=== PATIENT | female | born 1955 | race Caucasian/White ===

== ENCOUNTER 2019-03-13 08:15 | Day surgery (SDC) | payer BC ==
[2019-03-13] MEDS ORDERED: Sodium Chloride 0.9% 40 ML ONE (08:23)
[2019-03-13] MEDS ORDERED: Acetaminophen 500 MG TAB PO SCH (09:00)
[2019-03-13] MEDS ORDERED: diphenhydrAMINE 25 MG CAP PO SCH (09:00)
[2019-03-13 13:32] VITALS: BP 111/53; TEMP 98.4
== END 2019-03-13 13:51 | disposition home or self-care (01) ==
LOC: ONC/OP 08:15
PROVIDERS: ATTEND Internal Medicine Hematology & Oncology
PROC: 30233N1 Transfusion of Nonautologous Red Blood Cells into Peripheral Vein, Percutaneous Approach (ICD-10-PCS; principal; 2019-03-13)
DX: D64.9 Anemia, unspecified (principal); D69.6 Thrombocytopenia, unspecified
CPT/HCPCS: 36430; 86850; 86900; 86901; J1642; P9016; Q0163

== ENCOUNTER 2019-04-03 09:04 | Inpatient (IN) | payer BC ==
--- NOTE | 2019-04-03 10:26 | RAD ---
EXAM: Single view of the chest HISTORY: Back and abdominal pain; tachycardia COMPARISON: None FINDINGS: Single view of the chest shows a normal sized cardiomediastinal silhouette. A Mediport is seen with its tip in the superior vena cava. There is no evidence of consolidation, mass, or pleural effusion. The bones are unremarkable. IMPRESSION: No evidence of acute cardiopulmonary disease
[2019-04-03 10:35] LABS: ALT (SGPT) 31 U/L (8-55); AST (SGOT) 21 U/L (5-34); Albumin 3.6 g/dL (3.4-4.8); Alkaline Phosphatase 174 U/L (40-110); Anion Gap 19 mmol/L (10-20); Anisocytosis SLIGHT = 6-15 cells (100X) (0-5/hpf); BUN (Urea Nitrogen) 16 mg/dL (9.8-20.1); Band 12 % (5-11); Bilirubin, Total 1.5 mg/dL (0.2-1.2); Calc. Creatinine Clearance 0 mL/min (70-130); Calcium 8.7 mg/dL (7.8-10.44); Carbon Dioxide 23 mmol/L (23-31); Chloride 92 mmol/L (98-107); Estimated GFR-MDRD 40; Globulin 2.9 g/dL (2.4-3.5); Glucose 478 mg/dL (80-115); Hemoglobin 10.7 g/dL (12.0-16.0); Lymphocytes 2 % (21-51); MDiff Complete? YES; Mean Corpuscular HGB CONC 33.7 g/dL (32.0-36.0); Mean Corpuscular Hemoglobin 31.8 pg (27.0-31.0); Mean Corpuscular Volume 94.5 fL (78.0-98.0); Mean Platelet Volume 7.9 fL (7.4-10.4); Metamyelocyte 1 % (0-0); Monocytes 13 % (0-10); Neutrophil 71 % (42-75); Platelet Count 280 thou/uL (130-400); Platelet Morphology Comment Appears Adequate; Polychromasia SLIGHT = 2-3 cells (100X) (0-2/hpf); Potassium 3.8 mmol/L (3.5-5.1); Protein, Total 6.5 g/dL (6.0-8.3); RBC Distribution Width 18.2 % (11.5-14.5); Reactive Lymphocytes 1 % (0-10); Red Blood Cell (RBC) Count 3.36 mill/uL (4.20-5.40); Sodium 130 mmol/L (136-145); Stomatocytes SLIGHT = 2-5 cells (100X) (0-1/hpf); Toxic Granulation SLIGHT; White Blood Cell (WBC) Count 25.8 thou/uL (4.8-10.8)
[2019-04-03] MEDS ORDERED: Piperacillin/Tazobactam 4.5 GM VIAL ONE (10:44)
[2019-04-03 10:48] LABS: Lipase 1483 U/L (8-78)
[2019-04-03] MEDS ORDERED: Sodium Chloride 0.9% 100 ML ONE (10:48)
[2019-04-03] MEDS ORDERED: Morphine 4 MG/ML VIAL ONE (11:36)
[2019-04-03 13:28] LABS: Lactic Acid 4.5 mmol/L (0.5-2.2)
--- NOTE | 2019-04-03 13:28 | CT ---
CT Abdomen Pelvis W Con: 04/03/2019 9:44 AM CLINICAL INFORMATION: Abdominal pain COMPARISON: PET/CT 10/09/2014 TECHNIQUE: Multiple contiguous axial images were obtained and a CT of the abdomen and pelvis with IV contrast. Oral contrast was administered. Coronal and sagittal reformats were performed. FINDINGS: Lower Chest: within normal limits. Abdomen: Liver: Diffuse fatty infiltration of the liver. Bile Ducts: Normal caliber. Gallbladder: No calcified gallstones. Normal caliber wall. Pancreas: Stranding changes are seen surrounding the pancreas consistent with acute pancreatitis. Spleen: within normal limits. Adrenals: Stable bilateral adrenal hyperplasia Kidneys: within normal limits. Pelvis: Reproductive Organs: Status post hysterectomy. Ureters: within normal limits. Bladder: within normal limits. Peritoneum: No ascites or free air, no fluid collection. Bowel: Normal caliber. Mesentery and Retroperitoneum: No enlarged mesenteric or retroperitoneal lymph nodes. Vessels: Atherosclerotic calcifications. Abdominal Wall: within normal limits. Bones: Degenerative changes in the spine. IMPRESSION: 1. Acute pancreatitis 2. Fatty liver 3. Stable bilateral adrenal hyperplasia
--- NOTE | 2019-04-03 14:29 | PDOC.FPRHP ---
- History of Present Illness Chief Complaint: ABD Pain History of Present Illness: Mrs. Michele is a 63 y/o female w/ a PMH significant for B Cell Lymphoma , which has subsequently progressed to T Cell Lymphoma, HTN, HLD and steroid- induced DM who presents to the ED with abdominal pain. Per the patient she has had fatigue, gas and ABD pain all week. She also has had decreased appetite all week due to this pain. The pain is mid-epigastric, without radiation, and is crampy in nature. She states that she has tried Gas-X, but that this did not help. She rates the pain currently as a 4/10 after receiving a dose of morphine in the ED. She has also had diarrhea throughout the week, as well as intermittent constipation. She states that she has also had subjective fever and chills. She denies vomiting, headaches, visual or auditory disturbances, chest pain, SOB, muscle aches/joint pain, and depression/anxiety. She states that [facility] [place] [place], but is followed locally by Dr. Lin's office for her lab draws. ED Course: The patient received a 1L bolus of NS, a 1L bolus of LR and subsequent fluid resuscitation with LR at 125 ml/hr. She also received Morphine 4 mg IVP as well as Vancomycin 1 g and Zosyn 4.5 Lactic Acid was elevated at 4.5 and Lipase was also elevated at 1483. CT ABD/Pelvis revealed fat stranding around the pancreas, consistent with Acute Pancreatitis. CXR was read to have NAF. - Allergies/Adverse Reactions Allergies Allergy/AdvReac Type Severity Reaction Status Date / Time buspirone [From BuSpar] Allergy Verified 04/03/19 16:23 lisinopril Allergy Verified 04/03/19 16:23 - Home Medications Medication Instructions Recorded Confirmed Type Estradiol 1 mg PO DAILY 04/03/19 04/03/19 History Furosemide [Lasix] 80 mg PO DAILY 04/03/19 04/03/19 History Losartan Potassium 100 mg PO DAILY 04/03/19 04/03/19 History Pantoprazole Sodium [Protonix] 20 mg PO DAILY 04/03/19 04/03/19 History Rosuvastatin Calcium 20 mg PO DAILY 04/03/19 04/03/19 History Venlafaxine HCl [Venlafaxine HCl 300 mg PO DAILY 04/03/19 04/03/19 History ER] metFORMIN HCl [Metformin HCl ER] 1,000 mg PO BID 04/03/19 04/03/19 History - History PMHx: Currently treated for T-cell lymphoma, Hx of B-Cell lymphoma, steroid- induced DM HTN, HLD, Depression PSHx: Foot Surgery to repair a Lisfranc Fracture FHx: Mother (Lung Cancer) Social: Remote Tobacco Abuse (05/30 PPD for +20 Years) Meds: 20mg rosuvastatin qhs, 150mg venlafaxine 24hr capsule (2 capsules PO QD), 1mg estradiol qd, 80mg furosemide qam, 500mg metformin (2 tab po qd), 100mg losartan po qam, 20mg pantoprazole po qd, 20mg famotidine po qd prn, glipizide Allergies: buspar, lisinorpil, augmentin - Review of Systems General: reports: fever/chills (chills, no fever) Eyes: reports: vision changes (slightly with diabetes). denies: eye pain ENT: denies: nasal congestion, rhinorrhea Respiratory: denies: cough, shortness of breath Cardiovascular: reports: edema. denies: chest pain Gastrointestinal: reports: diarrhea, constipation, abdominal pain. denies: vomiting Genitourinary: denies: incontinence, dysuria Skin: reports: rashes (apthous ulcers in mouth, esophagus) Musculoskeletal: denies: pain, tenderness Neurological: denies: syncope, seizure Psychological: reports: depression (chronic). denies: anxiety - Vital signs BP: [117/83] HR: [108] RR: [33] Tmax: [98.5] Pox: [99]% on [RA] Wt: [] - Physical Exam Constitutional: NAD, awake, alert and oriented, well developed HEENT: normocephalic and atraumatic, PERRLA, conjunctiva clear, no scleral icterus, grossly normal vision, grossly normal hearing, normal nasal mucosa, MMM , oropharynx clear, good dention Neck: supple, FROM, no LAD Chest: no-tender to palpation, no lesions Heart: normal S1/S2, no murmurs/rubs/gallops, pulses present, no edema, other ( Tachycardia) Lungs: CTAB, no respiratory distress, good air movement, no rales/rhonchi, no wheezing, no retractions Abdomen: soft (Protuberant with minimal TTP.) Musculoskeletal: normal structure, ROM grossly normal Neurological: no focal deficit, CN II-XII intact Skin: no jaundice Heme/Lymphatic: no unusual bruising or bleeding, no purpura, no petechia Psychiatric: normal mood and affect, good judgment and insight, intact recent and remote memory FMR H&P: Results - Labs Result Diagrams: 04/03/19 09:56 04/03/19 18:27 Lab results: WBC 25.8 thou/uL (4.8-10.8) H 04/03/19 09:56 Hgb 10.7 g/dL (12.0-16.0) L 04/03/19 09:56 Hct 31.7 % (36.0-47.0) L 04/03/19 09:56 MCV 94.5 fL (78.0-98.0) 04/03/19 09:56 Plt Count 280 thou/uL (130-400) 04/03/19 09:56 Band Neuts % (Manual) 12 % (5-11) H 04/03/19 09:56 Sodium 130 mmol/L (136-145) L 04/03/19 09:56 Potassium 3.8 mmol/L (3.5-5.1) 04/03/19 09:56 Chloride 92 mmol/L (98-107) L 04/03/19 09:56 Carbon Dioxide 23 mmol/L (23-31) 04/03/19 09:56 BUN 16 mg/dL (9.8-20.1) 04/03/19 09:56 Creatinine 1.34 mg/dL (0.6-1.1) H 04/03/19 09:56 Glucose 478 mg/dL (80-115) H 04/03/19 09:56 Lactic Acid 4.5 mmol/L (0.5-2.2) H* 04/03/19 12:52 Calcium 8.7 mg/dL (7.8-10.44) 04/03/19 09:56 Total Bilirubin 1.5 mg/dL (0.2-1.2) H 04/03/19 09:56 AST 21 U/L (5-34) 04/03/19 09:56 ALT 31 U/L (8-55) 04/03/19 09:56 Alkaline Phosphatase 174 U/L (40-110) H 04/03/19 09:56 Serum Total Protein 6.5 g/dL (6.0-8.3) 04/03/19 09:56 Albumin 3.6 g/dL (3.4-4.8) 04/03/19 09:56 Lipase 1483 U/L (8-78) H 04/03/19 09:56 FMR H&P: A/P - Problem List (1) HTN (hypertension) Current Visit: Yes Status: Acute Code(s): I10 - ESSENTIAL (PRIMARY) HYPERTENSION (2) HLD (hyperlipidemia) Current Visit: Yes Status: Acute Code(s): E78.5 - HYPERLIPIDEMIA, UNSPECIFIED (3) Pancreatitis Current Visit: Yes Status: Acute Code(s): K85.90 - ACUTE PANCREATITIS WITHOUT NECROSIS OR INFECTION, UNSP (4) T-cell lymphoma Current Visit: Yes Status: Acute Code(s): C85.90 - NON-HODGKIN LYMPHOMA, UNSPECIFIED, UNSPECIFIED SITE (5) History of B-cell lymphoma Current Visit: Yes Status: Acute Code(s): Z85.72 - PERSONAL HISTORY OF NON- HODGKIN LYMPHOMAS - Plan 1. Pancreatitis, Acute -Patient denies a history of Pancreatitis in the past, as well as a history of known gallstones or EtOH abuse -CT ABD/Pelvis: Fat-stranding around the Pancreas, consistent with Acute Pancreatitis -CXR: NAF -Lipase: 1483 -Lactic Acid: 4.5 -s/p 2L fluid (1 LR and 1 NS), with LR currently @ 140 ml/hr -s/p Vancomycin and Zosyn administration -Currently NPO 2. T-Cell Lymphoma -Confirm next scheduled chemotherapy treatment -Coordinate with Oncology as needed -Monitor vital signs closely for indications of hospital-acquired infection -Anticoagulate appropriately 3. Leukocytosis -WBCs: 25.8 on 04/03 -Etiology unclear - could be infectious or steroid-induced or a stress response to pancreatitis -Blood Cultures: Pending -Urine Cultures: Pending -s/p Vancomycin and Zosyn administration 4. DM, poorly controlled -Blood Glucose: 478 -Mild SSI -Adjust as needed 3. HTN -BP: 117/83 on 04/03 -Continue home medication regimen 4. HLD -Continue home medication regimen -Consider Fasting Lipid Panel for further risk stratification 5. Hyponatremia -Na: 130 on 04/03 -Continue aggressive fluid resuscitation -Continue to trend lab values Code: Full Diet: NPO Activity: Ad kristin DVT PPx: SCDs and Lovenox 40 mg SC Dispo: Admit patient to Medical Floor for aggressive fluid resuscitation. NPO. Consider GI consult if condition deteriorates. Expected LOS > 48H. FMR H&P: Upper Level - Pertinent history 63 yo F w/ PMH of lymphoma presents for 2-3 day history of abdominal bloating and epigastric pain. Pt reports she has steroid induced DMII and occasionally takes insulin. She also takes metformin. Pt evaluated in ED found to have extremely elevated lipase in addition to CT findings c/w pancreatitis and epigastric tenderness. Pt reports pain is currently well controlled. No NVDC. Phyllis Score 3. BISAP 1. Unknown chemotherapy regimen. [place] @ [facility] Oncologist - Pertinent findings ROS: As above PE: Gen: NAD resting comfortably in bed HEENT: NCAT, PERRLA, EOMI CV: RRR No MRG Resp: CTA bl no wrr Abd: Sluggish bowel sounds, epigastric tenderness to palpation, no rebound or guarding Extremities: Moving all, no clubbing cyanosis or edema. - Plan Date/Time: 04/03/19 1421 IOusmane DO, have evaluated this patient and agree with findings/ plan as outlined by business analyst intern resident. Pertinent changes/additions are listed here. 1) Acute pancreatitis - Aggressive IVF hydration and opioids prn for pain control - will titrate fluids to maintain UOP .5-1mL/hr, decrease as needed 2) UTI: - given vanc and zosyn in ED - elevated wbc and bandemia; likely related to drug regimen vs lymphoma - switch to rocephin and monitor Seee above documentation for chronic medical conditions. Hold medications and advance as tolerated. Dispo: Stable, will admit to medical for pain control and IVFs. Insulin for hyperglycemia. BISAP 1, [place] 3. Addendum - Attending - Attending Attestation Date/Time: 04/03/19 [id number] I personally evaluated the patient and discussed the management with Dr. Huerta and Dr. Oakley I agree with the History, Examination, Assessment and Plan documented above with any addition or exceptions noted below. Will call and update oncologist at [facility]. Treat pancreatitis. Etiology unknown. Will screen for common causes. Unsure chem drugs. Will follow up with onc. Treat UTI. Culture pending. Continue IVFs and antibx. NPO. Monitor closely. David
[2019-04-03 14:51] LABS: Bacteria/HPF 1+ HPF (None Seen); Bilirubin Negative (Negative); Blood, Urine 1+ (Negative); Clarity Turbid (Clear); Glucose, Urine (Dipstick) Greater than 1000 mg/dL (Negative); Leukocyte Negative Leu/uL (Negative); Nitrite Negative (Negative); Protein, Urine (Dipstick) 70 mg/dL (Neg-Trace); RBC/HPF 0-3 HPF (0-3); Squamous Epithelial 0-3 HPF (0-3); Urobilinogen Normal mg/dL (Less than 2)
[2019-04-03] MEDS ORDERED: Dextrose 5% in Water 1,000 ML IV PRN (14:54)
[2019-04-03] MEDS ORDERED: Ondansetron ODT 4 MG TAB PO PRN (14:54)
[2019-04-03] MEDS ORDERED: Dextrose 50% Abboject 50 ML SYRINGE SLOW IVP PRN (14:54)
[2019-04-03] MEDS ORDERED: Senokot S 8.6-50 MG TAB PO PRN (14:54)
[2019-04-03] MEDS ORDERED: Acetaminophen 325 MG TAB PO PRN (14:54)
[2019-04-03] MEDS ORDERED: Lactated Ringer's 1,000 ML IV SCH (15:00)
[2019-04-03 15:25] LABS: Actual Bicarbonate (HCO3a) 21.7 mEq/L (22-28); Analyzer IN Cardio ER; Base Excess (BEa) -1.7 mEq/L (-2.0 to +3.0); CO2 Tension 32.2 mmHg (35.0-45.0); Calcium, Ionized 0.99 mmol/L (1.12-1.30); Carboxyhemoglobin (COHb) 0.6 gm% (0.0-3.0); O2 Tension (PaO2) 69.3 mmHg (> 80.0); Puncture Site RRA; pH, Arterial 7.45 (7.35-7.45)
[2019-04-03] MEDS ORDERED: HumaLOG 300 UNITS/3 ML VIAL SC SCH (15:45)
[2019-04-03 16:08] VITALS: BMI 40.8
[2019-04-03] MEDS ORDERED: Iopamidol 370 76% 50 ML VIAL FS ONE (16:19)
[2019-04-03] MEDS ORDERED: Iopamidol-370 76% 500 ML 1 ML ONE (16:20)
[2019-04-03] MEDS: Lactated Ringer's 1,000 ML IV SCH ×3 (17:04→22:53)
[2019-04-03] MEDS: cefTRIAXone\\ROCEPHIN 1 GM in Sodium Chloride 0.9% 100 ML IVPB SCH (17:32)
[2019-04-03] MEDS ORDERED: Morphine 4 MG/ML VIAL SLOW IVP PRN (17:55)
[2019-04-03 18:01] LABS: Cardiac Risk 4.4 (Less than 4.5)
[2019-04-03 18:53] LABS: Anion Gap 19 mmol/L (10-20); BUN (Urea Nitrogen) 14 mg/dL (9.8-20.1); Calc. Creatinine Clearance 78 mL/min (70-130); Carbon Dioxide 21 mmol/L (23-31); Chloride 94 mmol/L (98-107); Estimated GFR-MDRD 45; Glucose 303 mg/dL (80-115); Potassium 3.3 mmol/L (3.5-5.1); Sodium 131 mmol/L (136-145)
[2019-04-03 18:57] LABS: Lactic Acid 4.8 mmol/L (0.5-2.2)
[2019-04-03] MEDS ORDERED: Potassium Chloride 20 MEQ TAB PO SCH (19:45)
[2019-04-03 19:57] LABS: Phosphorus 1.7 mg/dL (2.3-4.7)
[2019-04-03] MEDS ORDERED: Magnesium 2 GM/50 ML 2 GM in Premix Bag 1 BAG IVPB SCH (20:15)
[2019-04-03] MEDS ORDERED: Potassium Phosphate 12 MMOL in Sodium Chloride 0.9% 100 ML IVPB SCH (20:15)
[2019-04-03] MEDS ORDERED: Simethicone Chewable 80 MG TAB PO PRN (20:48)
[2019-04-03] MEDS: Famotidine/PF 20 mg/2ml Vial SLOW IVP SCH (20:54)
[2019-04-03] MEDS ORDERED: Polyethylene Glycol 3350 17 GM Packet PO SCH (21:00)
[2019-04-03] MEDS: HumaLOG 300 UNITS/3 ML VIAL SC PRN ×2 (21:15→22:49)
[2019-04-04 00:12] LABS: Lactic Acid 4.7 mmol/L (0.5-2.2)
[2019-04-04] MEDS: HumaLOG 300 UNITS/3 ML VIAL SC PRN ×7 (00:32→22:08)
[2019-04-04] MEDS: Lactated Ringer's 1,000 ML IV SCH ×7 (01:34→22:17)
[2019-04-04] MEDS: Morphine 2 MG/ML SYRINGE SLOW IVP PRN ×3 (04:39→22:03)
--- NOTE | 2019-04-04 05:15 | PDOC.FM ---
- Subjective Subjective: Patient has been doing well overnight, tolerating ice chips. Reports she is passing gas, has yet to have a bm. Continues to have some abdominal pain, though more concerned with her back pain at this time. Discussed that we may be able to transition to fluids this afternoon if she does well today. - Objective Vital Signs & Weight: Vital Signs (12 hours) Temp Pulse Resp BP Pulse Ox 04/04/19 04:07 98.3 F 115 H 20 132/70 94 L 04/04/19 00:20 99.2 F 115 H 20 130/80 98 04/03/19 20:00 97 04/03/19 19:03 98.8 F 107 H 18 144/74 H 97 04/03/19 17:49 96 Weight Weight 101.406 kg Result Diagrams: 04/04/19 04:47 04/04/19 04:47 Phys Exam - Physical Examination Constitutional: NAD HEENT: moist MMs, sclera anicteric Neck: supple, full ROM Respiratory: no wheezing, clear to auscultation bilateral Cardiovascular: RRR, no significant murmur Gastrointestinal: soft, non-tender Musculoskeletal: no edema, pulses present Neurological: normal sensation, moves all 4 limbs Psychiatric: normal affect, A&O x 3 Skin: no rash, normal turgor Dx/Plan (1) Depression Code(s): F32.9 - MAJOR DEPRESSIVE DISORDER, SINGLE EPISODE, UNSPECIFIED Status : Chronic (2) HLD (hyperlipidemia) Code(s): E78.5 - HYPERLIPIDEMIA, UNSPECIFIED Status: Chronic (3) HTN (hypertension) Code(s): I10 - ESSENTIAL (PRIMARY) HYPERTENSION Status: Chronic (4) History of B-cell lymphoma Code(s): Z85.72 - PERSONAL HISTORY OF NON-HODGKIN LYMPHOMAS Status: Acute (5) Pancreatitis Code(s): K85.90 - ACUTE PANCREATITIS WITHOUT NECROSIS OR INFECTION, UNSP Status: Acute (6) T-cell lymphoma Code(s): C85.90 - NON-HODGKIN LYMPHOMA, UNSPECIFIED, UNSPECIFIED SITE Status: Chronic (7) Leukocytosis Code(s): D72.829 - ELEVATED WHITE BLOOD CELL COUNT, UNSPECIFIED Status: Acute (8) Hyponatremia Code(s): E87.1 - HYPO-OSMOLALITY AND HYPONATREMIA Status: Acute (9) UTI (urinary tract infection) Status: Acute (10) Hypomagnesemia Code(s): E83.42 - HYPOMAGNESEMIA Status: Acute (11) Hypophosphatemia Code(s): E83.39 - OTHER DISORDERS OF PHOSPHORUS METABOLISM Status: Acute (12) Hypokalemia Code(s): E87.6 - HYPOKALEMIA Status: Acute - Plan Plan: #Pancreatitis, Acute -Patient denies a history of Pancreatitis in the past, as well as a history of known gallstones or EtOH abuse -CT ABD/Pelvis: Fat-stranding around the Pancreas, consistent with Acute Pancreatitis -CXR: neg -Lipase: 1483 -Lactic Acid: 4.5 in ED > 3.3 this am -s/p 2L fluid (1 LR and 1 NS) - LR currently @ 300 ml/hr -s/p Vancomycin and Zosyn administration in ED -Currently NPO with ice chips #T-Cell Lymphoma -onc consulted, appreciate recs -Monitor vital signs closely for indications of hospital-acquired infection -on lovenox for anticoagulation #Leukocytosis -WBCs: 25.8 on 04/03 -Etiology unclear - could be infectious or steroid-induced, likely a stress response to pancreatitis -Blood Cultures: Pending -Urine Cultures: Pending -s/p Vancomycin and Zosyn administration in ED -on rocephin for UTI #DM, poorly controlled; 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 -hold home metformin and glipizide, use insulin -Blood Glucose: 478 in ED, in 200s overnight -Mild SSI -Adjust as needed #HTN -BP: 130-140/70-80 overnight -Continue home medication regimen #HLD -hold statin for now until pacreatitis resolves #Hyponatremia -Na: 130>133 -Continue aggressive fluid resuscitation -will monitor #hypomagnesemia #hypophosphatemia #hypokalemia -on LR -repleted overnight and this am, will continue to monitor #UTI -UA positive for bacteria, LE -started on rocephin -urine culture pending Code: Full Diet: NPO with ice chips Activity: Ad kristin DVT PPx: Lovenox Dispo: Medical Floor for aggressive fluid resuscitation. NPO with ice chips, advance diet as tolerated. Onc consult in place, appreciate recs Addendum - Attending - Attending Attestation Date/Time: 11/02/12 1815 I personally evaluated the patient and discussed the management with Dr. Norwood. I agree with the History, Examination, Assessment and Plan documented above with any addition or exceptions noted below. Patient has mild tenderness but overall is much improved. If continues to do well, may advance diet this afternoon.
[2019-04-04 05:46] LABS: Phosphorus 2.1 mg/dL (2.3-4.7)
[2019-04-04 05:55] LABS: ALT (SGPT) 23 U/L (8-55); AST (SGOT) 16 U/L (5-34); Albumin 2.9 g/dL (3.4-4.8); Alkaline Phosphatase 135 U/L (40-110); Anion Gap 16 mmol/L (10-20); BUN (Urea Nitrogen) 11 mg/dL (9.8-20.1); Bilirubin, Total 0.8 mg/dL (0.2-1.2); Calc. Creatinine Clearance 104 mL/min (70-130); Calcium 7.6 mg/dL (7.8-10.44); Carbon Dioxide 21 mmol/L (23-31); Chloride 99 mmol/L (98-107); Estimated GFR-MDRD 63; Globulin 2.5 g/dL (2.4-3.5); Glucose 216 mg/dL (80-115); Magnesium 1.4 mg/dL (1.6-2.6); Protein, Total 5.4 g/dL (6.0-8.3); Sodium 133 mmol/L (136-145)
--- NOTE | 2019-04-04 05:58 | PDOC.FM ---
- Objective Vital Signs & Weight: Vital Signs (12 hours) Temp Pulse Resp BP Pulse Ox 04/04/19 04:07 98.3 F 115 H 20 132/70 94 L 04/04/19 00:20 99.2 F 115 H 20 130/80 98 04/03/19 20:00 97 04/03/19 19:03 98.8 F 107 H 18 144/74 H 97 Weight Weight 101.406 kg Result Diagrams: 04/03/19 09:56 04/03/19 18:27 Dx/Plan - Plan Plan: #Pancreatitis, Acute -Patient denies a history of Pancreatitis in the past, as well as a history of known gallstones or EtOH abuse -CT ABD/Pelvis: Fat-stranding around the Pancreas, consistent with Acute Pancreatitis -CXR: neg -Lipase: 1483 -Lactic Acid: 4.5 -s/p 2L fluid (1 LR and 1 NS) - LR currently @ 300 ml/hr -s/p Vancomycin and Zosyn administration in ED -Currently NPO with ice chips #T-Cell Lymphoma -onc consulted, appreciate recs -Monitor vital signs closely for indications of hospital-acquired infection -on lovenox for anticoagulation #Leukocytosis -WBCs: 25.8 on 04/03 -Etiology unclear - could be infectious or steroid-induced, likely a stress response to pancreatitis -Blood Cultures: Pending -Urine Cultures: Pending -s/p Vancomycin and Zosyn administration in ED -on rocephin for UTI #DM, poorly controlled; 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 -hold home metformin and glipizide, use insulin -Blood Glucose: 478 in ED, in 200s overnight -Mild SSI -Adjust as needed #HTN -BP: 130-140/70/80 overnight -Continue home medication regimen #HLD -hold statin for now until pacreatitis resolves #Hyponatremia -Na: 130 on 04/03 -Continue aggressive fluid resuscitation -will monitor #UTI -UA positive for bacteria, LE -started on rocephin -urine culture pending Code: Full Diet: NPO with ice chips Activity: Ad kristin DVT PPx: Lovenox Dispo: Medical Floor for aggressive fluid resuscitation. NPO with ice chips, advance diet as tolerated. Onc consult in place, appreciate recs
[2019-04-04 06:37] LABS: Band 17 % (5-11); Hemoglobin 8.6 g/dL (12.0-16.0); Lymphocytes 1 % (21-51); MDiff Complete? YES; Mean Corpuscular HGB CONC 33.9 g/dL (32.0-36.0); Mean Corpuscular Hemoglobin 31.9 pg (27.0-31.0); Mean Corpuscular Volume 94.1 fL (78.0-98.0); Mean Platelet Volume 7.7 fL (7.4-10.4); Monocytes 5 % (0-10); Neutrophil 77 % (42-75); Platelet Count 224 thou/uL (130-400); RBC Distribution Width 17.9 % (11.5-14.5); White Blood Cell (WBC) Count 22.8 thou/uL (4.8-10.8)
[2019-04-04] MEDS ORDERED: Potassium Phosphate 12 MMOL in Sodium Chloride 0.9% 250 ML 250 ML IVPB SCH (07:30)
[2019-04-04] MEDS ORDERED: Magnesium 2 GM/50 ML 2 GM in Premix Bag 1 BAG IVPB SCH (08:00)
[2019-04-04] MEDS: Venlafaxine HCl XR 150 MG CAP PO SCH (08:10)
[2019-04-04] MEDS: Famotidine/PF 20 mg/2ml Vial SLOW IVP SCH ×2 (08:10→19:58)
[2019-04-04] MEDS: Enoxaparin Sodium 40 MG/0.4 ML SYRINGE SC SCH (08:11)
[2019-04-04 08:13] LABS: Lactic Acid 3.3 mmol/L (0.5-2.2)
--- NOTE | 2019-04-04 11:14 | CON ---
DATE OF CONSULTATION: REASON FOR CONSULTATION: Lymphoma. HISTORY OF PRESENT ILLNESS: This is a 63-year-old female with T-cell lymphoma, on chemo, presenting to the hospital with abdominal pain, back pain, and severe constipation. The patient has a history of T-cell lymphoma and is currently on chemotherapy with rituximab, Cytoxan, prednisone, and Adriamycin at [facility]. The patient was evaluated by a nurse in the Cancer Clinic today with complaints of pain and constipation as well as lack of passing gas and was advised to go to the ER for evaluation. She denies any significant nausea, vomiting, or other complaints. She is due for next chemotherapy on April 10, 2019, at [facility]. In the clinic yesterday, her white blood cells are 26.4, hemoglobin 10.7, and platelets 313. The glucose of 439, a bilirubin of 1.4, and LDH 347. Uric acid 6.2. Upon evaluation in the ER, she received IV fluids, morphine, vancomycin, and Zosyn. A CAT scan of the abdomen and pelvis showed fat stranding around the pancreas consistent with acute pancreatitis. REVIEW OF SYSTEMS: Ten-point review of systems negative except as per HPI. PAST MEDICAL HISTORY: T-cell lymphoma, B-cell lymphoma, diabetes, hypertension, hyperlipidemia, depression, and family history of lung cancer in her mother. PAST SURGICAL HISTORY: Foot surgery, MediPort. SOCIAL HISTORY: One-fourth pack per day x20 plus years, not currently smoking. No current alcohol or illicit drugs. CURRENT MEDICATIONS: Reviewed. ALLERGIES: AUGMENTIN, LISINOPRIL, AND BUSPAR. PHYSICAL EXAMINATION: VITAL SIGNS: Temperature 98.5, pulse 99, respirations 20, saturating 97% on room air, and blood pressure 111/66. GENERAL APPEARANCE: The patient is lying in bed, in no acute distress and appears well. NECK: Supple. CARDIAC: S1 and S2. Regular rhythm and rate. RESPIRATIONS: Clear to auscultation. Good air movement bilaterally. ABDOMEN: Soft with mild tenderness to palpation in lower epigastric region. NEUROLOGIC: Cranial nerves II through XII are grossly intact. PSYCHIATRIC: Awake, alert, and oriented x3 with normal affect. LABORATORY DATA: White blood cells 22.8, hemoglobin 10.7 down to 8.6 after IV fluids, and platelets 224. Sodium 133, potassium 3.0, BUN 11, and creatinine 0.91. Lactic acid 6.2 on presentation, currently 3.3. Lipase 1483. Magnesium 1.4, phosphorus 2.1, and albumin 2.9. IMAGING DATA: CT abdomen and pelvis dated April 03, 2019, shows stranding changes surrounding the pancreas consistent with acute pancreatitis. ASSESSMENT AND PLAN: A 63-year-old female with T-cell lymphoma, currently on chemotherapy plus brentuximab, presenting to the hospital with acute pancreatitis and ileus. The patient is feeling much better after IV hydration and has begun passing gas. She does not drink alcohol and has no history of gallstones and none were seen on CT and her triglycerides were only mildly elevated. Presently, she does have history of scorpion bites, but none in a long time. There are rare case reports of brentuximab-induced pancreatitis and this may be the cause, however, this of course is a diagnosis of exclusion. Recommend continue IV hydration and pain control along with bowel rest and upon improvement, she can be discharged home with followup at [facility] for final cycle of chemotherapy and will need to discuss with [facility] doctors if they are comfortable continuing brentuximab in light of her pancreatitis episode. We will follow along peripherally with you. Please call with questions. Job ID: [id number] MTDD
--- NOTE | 2019-04-04 12:02 | ULT ---
Exam: Right upper quadrant ultrasound: HISTORY: Pancreatitis. COMPARISON: CT abdomen and pelvis on 04/03/2019. FINDINGS: Liver: Coarsened echotexture and increased echogenicity likely attributable to diffuse fatty infiltra tion which was noted on prior CT exam. This does limit evaluation of the hepatic parenchyma on sonographic evaluation. Gallbladder: No evidence of gallbladder calculi, gallbladder wall thickening, or pericholecystic flui d. Common bile duct: Common duct is dilated measuring 8 mm in diameter. No intrahepatic biliary duct dil atation is appreciated on this exam. Pancreas: Obscured due to bowel gas. Right kidney: Limited evaluation, but no gross abnormality is seen involving the right kidney. The ri ght kidney measures 12.9 cm in length. IVC: The visualized IVC demonstrates a normal sonographic appearance. IMPRESSION: 1. Diffuse fatty infiltration the liver limiting evaluation of the hepatic parenchyma. 2. Dilatation of the common duct which measures 8 mm. The exact etiology is uncertain. No intrahepati c biliary ductal dilatation is appreciated. 3. No gallbladder calculi are seen, and there is no gallbladder wall thickening or pericholecystic fl uid. 4. Nonvisualization of the pancreas.
[2019-04-04] MEDS ORDERED: Fleet Enema 133 ML BOT PR PRN (14:14)
[2019-04-04] MEDS: cefTRIAXone\\ROCEPHIN 1 GM in Sodium Chloride 0.9% 100 ML IVPB SCH (15:33)
[2019-04-04] MEDS ORDERED: Polyethylene Glycol 3350 17 GM Packet PO PRN (18:16)
[2019-04-05] MEDS: Morphine 2 MG/ML SYRINGE SLOW IVP PRN ×3 (03:39→22:31)
[2019-04-05] MEDS: Lactated Ringer's 1,000 ML IV SCH ×7 (03:41→21:27)
--- NOTE | 2019-04-05 05:28 | PDOC.FM ---
- Subjective Subjective: Patient doing well today, abdominal pain decreased. Passing flatus and belching. Eager to start on liquid diet today and advance as tolerated. - Objective Vital Signs & Weight: Vital Signs (12 hours) Temp Pulse Resp BP Pulse Ox 04/05/19 04:00 98.9 F 102 H 20 90/53 L 91 L 04/05/19 00:00 98.2 F 117 H 20 139/79 97 04/04/19 20:00 98.6 F 107 H 20 130/78 97 Weight Admit Weight 101.151 kg Weight 101.151 kg I&O: 04/03/19 04/04/19 04/05/19 06:59 06:59 06:59 Intake Total 3050 3240 Balance 3050 3240 Result Diagrams: 04/05/19 06:33 04/05/19 08:55 Phys Exam - Physical Examination Constitutional: NAD HEENT: moist MMs, sclera anicteric Neck: supple, full ROM Respiratory: no wheezing, clear to auscultation bilateral Cardiovascular: RRR, no significant murmur Gastrointestinal: soft, positive bowel sounds slightly ttp mid-epigastric area, improved Musculoskeletal: pulses present Neurological: normal sensation, moves all 4 limbs Psychiatric: normal affect, A&O x 3 Skin: no rash, normal turgor Dx/Plan (1) Depression Code(s): F32.9 - MAJOR DEPRESSIVE DISORDER, SINGLE EPISODE, UNSPECIFIED Status : Chronic (2) HLD (hyperlipidemia) Code(s): E78.5 - HYPERLIPIDEMIA, UNSPECIFIED Status: Chronic (3) HTN (hypertension) Code(s): I10 - ESSENTIAL (PRIMARY) HYPERTENSION Status: Chronic (4) History of B-cell lymphoma Code(s): Z85.72 - PERSONAL HISTORY OF NON-HODGKIN LYMPHOMAS Status: Acute (5) Pancreatitis Code(s): K85.90 - ACUTE PANCREATITIS WITHOUT NECROSIS OR INFECTION, UNSP Status: Acute (6) T-cell lymphoma Code(s): C85.90 - NON-HODGKIN LYMPHOMA, UNSPECIFIED, UNSPECIFIED SITE Status: Chronic (7) Leukocytosis Code(s): D72.829 - ELEVATED WHITE BLOOD CELL COUNT, UNSPECIFIED Status: Acute (8) Hyponatremia Code(s): E87.1 - HYPO-OSMOLALITY AND HYPONATREMIA Status: Acute (9) UTI (urinary tract infection) Status: Acute (10) Hypomagnesemia Code(s): E83.42 - HYPOMAGNESEMIA Status: Acute (11) Hypophosphatemia Code(s): E83.39 - OTHER DISORDERS OF PHOSPHORUS METABOLISM Status: Acute (12) Hypokalemia Code(s): E87.6 - HYPOKALEMIA Status: Acute - Plan Plan: #Pancreatitis, Acute -Patient denies a history of Pancreatitis in the past, as well as a history of known gallstones or EtOH abuse -CT ABD/Pelvis: Fat-stranding around the Pancreas, consistent with Acute Pancreatitis -Abdominal U/S: no gallbladder calculi, no gallbladder wall thickening, no pericholecystic fluid, diffuse fatty infiltration of the liver, dilation of the common bile duct at 8mm, no intrahepatic biliary duct dilitation -CXR: neg -Lipase: 1483 -Lactic Acid: 4.5 in ED > 3.3 > 2.5 -s/p 2L fluid (1 LR and 1 NS) in ED -LR currently @ 300 ml/hr -s/p Vancomycin and Zosyn administration in ED -Advance diet to clears today, with advancing as tolerated #T-Cell Lymphoma -onc consulted, appreciate recs -per note there is a rare association of pancreatitis with brentuximab; rec continued IV hydration and f/u with MD Higuera for final course of chemotherapy and to discuss tx options in light of recent pancreatitis -Monitor vital signs closely for indications of hospital-acquired infection -on lovenox for anticoagulation #Leukocytosis -WBCs: 25.8>22.8>20.3 -Etiology unclear - could be infectious or steroid-induced, likely a stress response to pancreatitis -Blood Cultures: Pending -Urine Cultures: Pending -s/p Vancomycin and Zosyn administration in ED -on rocephin for UTI #DM, poorly controlled; 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 -hold home metformin and glipizide, use insulin -Blood Glucose: 478 in ED -Mild SSI, in the 200s throughout the day yesterday, required 12u short-acting -start 6u long acting insulin today -Adjust as needed #HTN -BP: 90-139/53-79 overnight #HLD -hold statin for now until pancreatitis resolves #hypomagnesemia #hypophosphatemia #hypokalemia -on LR -will continue to monitor and replete as needed #UTI -UA positive for bacteria, LE -started on rocephin -urine culture pending #Hyponatremia, resolved -Na: 130>133>137 -Continue aggressive fluid resuscitation -will monitor Code: Full Diet: Clears Activity: Ad kristin DVT PPx: Lovenox, though patient is refusing; SCDs Dispo: Medical Floor for aggressive fluid resuscitation. Clears today, advance diet as tolerated. Addendum - Attending - Attending Attestation Date/Time: 04/05/19 6135 I personally evaluated the patient and discussed the management with Dr. Norwood. I agree with the History, Examination, Assessment and Plan documented above with any addition or exceptions noted below. The patient's abdominal pain is improved. Will advance diet. Miralax for constipation.
[2019-04-05] MEDS: HumaLOG 300 UNITS/3 ML VIAL SC PRN ×3 (05:49→17:46)
[2019-04-05 07:09] LABS: Lactic Acid 2.5 mmol/L (0.5-2.2)
[2019-04-05] MEDS: Enoxaparin Sodium 40 MG/0.4 ML SYRINGE SC SCH (08:03)
[2019-04-05] MEDS: Famotidine/PF 20 mg/2ml Vial SLOW IVP SCH ×2 (08:03→20:04)
[2019-04-05 08:05] LABS: Hemoglobin 8.3 g/dL (12.0-16.0); Mean Corpuscular HGB CONC 33.6 g/dL (32.0-36.0); Mean Corpuscular Hemoglobin 32.4 pg (27.0-31.0); Mean Corpuscular Volume 96.5 fL (78.0-98.0); Platelet Count 238 thou/uL (130-400); RBC Distribution Width 17.9 % (11.5-14.5); Red Blood Cell (RBC) Count 2.57 mill/uL (4.20-5.40); White Blood Cell (WBC) Count 20.3 thou/uL (4.8-10.8)
[2019-04-05 08:06] LABS: Band 8 % (5-11); Lymphocytes 2 % (21-51); MDiff Complete? YES; Monocytes 2 % (0-10); Neutrophil 88 % (42-75)
[2019-04-05] MEDS: Venlafaxine HCl XR 150 MG CAP PO SCH (08:06)
[2019-04-05] MEDS ORDERED: Insulin Glargine 6 UNITS in Pre-Filled Syringe 1 EACH SC SCH (09:00)
[2019-04-05 09:29] LABS: ALT (SGPT) 21 U/L (8-55); AST (SGOT) 20 U/L (5-34); Albumin 2.6 g/dL (3.4-4.8); Alkaline Phosphatase 126 U/L (40-110); Anion Gap 17 mmol/L (10-20); BUN (Urea Nitrogen) 7 mg/dL (9.8-20.1); Bilirubin, Total 0.7 mg/dL (0.2-1.2); Calc. Creatinine Clearance 127 mL/min (70-130); Calcium 7.4 mg/dL (7.8-10.44); Carbon Dioxide 17 mmol/L (23-31); Chloride 107 mmol/L (98-107); Estimated GFR-MDRD 80; Globulin 2.6 g/dL (2.4-3.5); Glucose 203 mg/dL (80-115); Potassium 3.6 mmol/L (3.5-5.1); Protein, Total 5.2 g/dL (6.0-8.3); Sodium 137 mmol/L (136-145)
[2019-04-05 13:11] LABS: Magnesium 1.2 mg/dL (1.6-2.6); Phosphorus 1.7 mg/dL (2.3-4.7)
[2019-04-05] MEDS ORDERED: PHOS-NAK 1 PKT PACK PO SCH (14:00)
[2019-04-05] MEDS: cefTRIAXone\\ROCEPHIN 1 GM in Sodium Chloride 0.9% 100 ML IVPB SCH (15:45)
[2019-04-05] MEDS: Magnesium Oxide 400 MG TAB PO SCH ×2 (20:04→22:29)
--- NOTE | 2019-04-05 21:10 | RAD ---
EXAM: CHEST ONE VIEW HISTORY: Shortness of breath. COMPARISON: 04/03/2019 FINDINGS: Right internal jugular vein Mediport catheter remains in place. The cardiac silhouette is mildly enla rged there are increased linear and slight patchy densities at each lung base. Findings are probably attributable to bibasilar atelectasis. However, developing pneumonitis at the right lung bas e cannot be entirely excluded. No other interval change. IMPRESSION: Bibasilar linear densities with slight patchy densities at the right lung base. Findings are most lik jessi attributable to bibasilar atelectasis, but developing pneumonitis at the right lung base cannot be entirely excluded. Follow-up PA and lateral chest x-ray is recommended.
--- NOTE | 2019-04-06 05:39 | PDOC.FM ---
- Subjective Subjective: Patient doing well this morning, reports she tolerated her liquid diet well yesterday, eager to transition to food today. Still having some abdominal pain but improved. Discussed importance of lovenox with patient today, patient agreeable to take it. - Objective Vital Signs & Weight: Vital Signs (12 hours) Temp Pulse Resp BP Pulse Ox 04/06/19 04:07 98.3 F 106 H 18 130/71 93 L 04/06/19 00:16 98.8 F 111 H 20 129/77 91 L 04/05/19 22:38 114 H 95 04/05/19 19:20 91 L 04/05/19 18:55 98.0 F 114 H 20 132/80 91 L Weight Admit Weight 101.151 kg Weight 101.151 kg I&O: 04/04/19 04/05/19 04/06/19 06:59 06:59 06:59 Intake Total 3050 3740 3179 Balance 3050 3740 3179 Result Diagrams: 04/06/19 05:06 04/06/19 05:06 Phys Exam - Physical Examination Constitutional: NAD HEENT: moist MMs, sclera anicteric Neck: supple, full ROM Respiratory: clear to auscultation bilateral Cardiovascular: RRR, no significant murmur Gastrointestinal: soft ttp mid-epigastric region Musculoskeletal: no edema, pulses present Neurological: normal sensation, moves all 4 limbs Psychiatric: normal affect, A&O x 3 Skin: no rash, normal turgor Dx/Plan (1) Depression Code(s): F32.9 - MAJOR DEPRESSIVE DISORDER, SINGLE EPISODE, UNSPECIFIED Status : Chronic (2) HLD (hyperlipidemia) Code(s): E78.5 - HYPERLIPIDEMIA, UNSPECIFIED Status: Chronic (3) HTN (hypertension) Code(s): I10 - ESSENTIAL (PRIMARY) HYPERTENSION Status: Chronic (4) History of B-cell lymphoma Code(s): Z85.72 - PERSONAL HISTORY OF NON-HODGKIN LYMPHOMAS Status: Acute (5) Pancreatitis Code(s): K85.90 - ACUTE PANCREATITIS WITHOUT NECROSIS OR INFECTION, UNSP Status: Acute (6) T-cell lymphoma Code(s): C85.90 - NON-HODGKIN LYMPHOMA, UNSPECIFIED, UNSPECIFIED SITE Status: Chronic (7) Leukocytosis Code(s): D72.829 - ELEVATED WHITE BLOOD CELL COUNT, UNSPECIFIED Status: Acute (8) Hyponatremia Code(s): E87.1 - HYPO-OSMOLALITY AND HYPONATREMIA Status: Acute (9) UTI (urinary tract infection) Status: Acute (10) Hypomagnesemia Code(s): E83.42 - HYPOMAGNESEMIA Status: Acute (11) Hypophosphatemia Code(s): E83.39 - OTHER DISORDERS OF PHOSPHORUS METABOLISM Status: Acute (12) Hypokalemia Code(s): E87.6 - HYPOKALEMIA Status: Acute - Plan Plan: #Pancreatitis, Acute -Patient denies a history of Pancreatitis in the past, as well as a history of known gallstones or EtOH abuse -CT ABD/Pelvis: Fat-stranding around the Pancreas, consistent with Acute Pancreatitis -Abdominal U/S: no gallbladder calculi, no gallbladder wall thickening, no pericholecystic fluid, diffuse fatty infiltration of the liver, dilation of the common bile duct at 8mm, no intrahepatic biliary duct dilitation -CXR: neg -Lipase: 1483>40 -Lactic Acid: 4.5 in ED > 3.3 > 2.5 -s/p 2L fluid (1 LR and 1 NS) in ED -LR currently @ 100 ml/hr -s/p Vancomycin and Zosyn administration in ED -Advance diet to CC, will see how patient tolerates diet throughout the day with possible d/c this afternoon #T-Cell Lymphoma -onc consulted, appreciate recs -per note there is a rare association of pancreatitis with brentuximab; rec continued IV hydration and f/u with MD Higuera for final course of chemotherapy and to discuss tx options in light of recent pancreatitis -Monitor vital signs closely for indications of hospital-acquired infection -on lovenox for anticoagulation, though patient continues to refuse this; discussed importance with patient this morning and patient agreeable #Leukocytosis -WBCs: 25.8>22.8>20.3 -Etiology unclear - could be infectious or steroid-induced, likely a stress response to pancreatitis -Blood Cultures: Pending -Urine Cultures: mixed skin ugo -s/p Vancomycin and Zosyn administration in ED -on rocephin for UTI #DM, poorly controlled; 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 -hold home metformin and glipizide, use insulin -Blood Glucose: 478 in ED -Mild SSI, in the 200s throughout the day yesterday, required 9u short-acting -change from 6u to 10u long acting insulin today based on short acting requirements yesterday -Adjust as needed #HTN -BP: 129-130/71-77 overnight #HLD -hold statin for now until pancreatitis resolves #hypomagnesemia #hypophosphatemia #hypokalemia -on LR -will continue to monitor and replete as needed #UTI, resolved -UA positive for bacteria, LE -s/p 3-day course rocephin -urine culture: mixed skin ugo #Hyponatremia, resolved -Na: 130>133>137>134 -Continue aggressive fluid resuscitation -will monitor Code: Full Diet: CC Activity: Ad kristin DVT PPx: Lovenox, though patient is refusing; SCDs though patient refused Dispo: Medical Floor. CC diet today, possible d/c later this afternoon if patient tolerates her diet well Addendum - Attending - Attending Attestation Date/Time: 04/06/19 5301 I personally evaluated the patient and discussed the management with Dr. Norwood. I agree with the History, Examination, Assessment and Plan documented above with any addition or exceptions noted below. The patient is feeling better. Advancing diet. She had toast this morning. If pt does well, may d/c this afternoon.
[2019-04-06] MEDS: Lactated Ringer's 1,000 ML IV SCH (05:48)
[2019-04-06] MEDS: HumaLOG 300 UNITS/3 ML VIAL SC PRN ×2 (05:48→13:26)
[2019-04-06 06:04] LABS: ALT (SGPT) 19 U/L (8-55); AST (SGOT) 17 U/L (5-34); Albumin 2.8 g/dL (3.4-4.8); Alkaline Phosphatase 137 U/L (40-110); Anion Gap 12 mmol/L (10-20); BUN (Urea Nitrogen) 5 mg/dL (9.8-20.1); Bilirubin, Total 0.8 mg/dL (0.2-1.2); Calc. Creatinine Clearance 127 mL/min (70-130); Calcium 7.5 mg/dL (7.8-10.44); Carbon Dioxide 23 mmol/L (23-31); Chloride 102 mmol/L (98-107); Estimated GFR-MDRD 80; Globulin 2.6 g/dL (2.4-3.5); Glucose 234 mg/dL (80-115); Protein, Total 5.4 g/dL (6.0-8.3); Sodium 134 mmol/L (136-145)
[2019-04-06 06:37] LABS: Lactic Acid 2.5 mmol/L (0.5-2.2)
[2019-04-06 06:42] LABS: Magnesium 1.1 mg/dL (1.6-2.6)
[2019-04-06 06:51] LABS: Phosphorus 1.7 mg/dL (2.3-4.7)
[2019-04-06 06:52] LABS: Band 15 % (5-11); Hemoglobin 8.5 g/dL (12.0-16.0); Lymphocytes 6 % (21-51); MDiff Complete? YES; Mean Corpuscular HGB CONC 34.1 g/dL (32.0-36.0); Mean Corpuscular Hemoglobin 32.2 pg (27.0-31.0); Mean Corpuscular Volume 94.5 fL (78.0-98.0); Mean Platelet Volume 7.9 fL (7.4-10.4); Monocytes 1 % (0-10); Neutrophil 78 % (42-75); Platelet Count 238 thou/uL (130-400); RBC Distribution Width 18.2 % (11.5-14.5); Red Blood Cell (RBC) Count 2.64 mill/uL (4.20-5.40); White Blood Cell (WBC) Count 14.8 thou/uL (4.8-10.8)
[2019-04-06] MEDS ORDERED: traMADol HCl 50 MG TAB PO PRN (07:07)
[2019-04-06] MEDS ORDERED: Potassium Phosphate 30 MMOL in Sodium Chloride 0.9% 500 ML IVPB SCH (07:15)
[2019-04-06] MEDS ORDERED: Magnesium 2 GM/50 ML 2 GM in Premix Bag 1 BAG IVPB SCH (07:15)
[2019-04-06] MEDS ORDERED: Polyethylene Glycol 3350 17 GM Packet PO PRN (08:09)
[2019-04-06] MEDS: Enoxaparin Sodium 40 MG/0.4 ML SYRINGE SC SCH (08:18)
[2019-04-06] MEDS: Magnesium Oxide 400 MG TAB PO SCH (08:19)
[2019-04-06] MEDS: Venlafaxine HCl XR 150 MG CAP PO SCH (08:19)
[2019-04-06] MEDS: Famotidine/PF 20 mg/2ml Vial SLOW IVP SCH (08:19)
[2019-04-06] MEDS: Ketorolac Tromethamine 10 MG TAB PO SCH ×2 (08:35→13:23)
[2019-04-06] MEDS ORDERED: Insulin Glargine 10 UNITS in Pre-Filled Syringe 1 EACH SC SCH (09:00)
[2019-04-06 15:24] VITALS: BP 144/73; TEMP 97.7
--- NOTE | 2019-04-06 16:50 | PQF ---
PAPO BARBOSA NIKKI, MD *r [id number]- [id number] CLINICAL DOCUMENTATION IMPROVEMENT CLARIFICATION FORM: ICD-10 Updated PLEASE DO AN ADDENDUM TO THE PROGRESS NOTE WITH ANY DOCUMENTATION UPDATES OR ADDITIONS AND CARRY THROUGH TO DC SUMMARY. THANK YOU. DATE: 04/06/19 ATTN: Dr. Norwood Please exercise your independent, professional judgment in responding to the clarification form. Clinical indicators are provided on the bottom of this form for your review Please check appropriate box(es): [ ] Sepsis due to: UTI [x] SIRS due to non-infectious process due to pancreatitis [x] with organ dysfunction(acute kidney injury) [ ] without organ dysfunction [ ] Localized infection without sepsis [ ] Other diagnosis [ ] Unable to determine In addition, please specify: Present on Admission (POA): [x] Yes [ ] No [ ] Unable to determine For continuity of documentation, please document condition throughout progress notes and discharge summary. Thank You. CLINICAL INDICATORS - SIGNS / SYMPTOMS / LABS / RESULTS AND LOCATION IN MR 04/03 VS: HR 108 WBC 25.8 04/03 labs 04/03 bun 16, creat 1.34, GFR 40--bun 14, creat 1.21, GFR 45--04/05 bun 7, creat 0.74, GFR 80 per lab UA wbc 11-20 04/03 lab 04/03 lactic acid 6.2 per lab H&P(Borroni): "leukocytosis could be infectious or steroid induced or a stress response to pancreatitis" RISK FACTORS / RESULTS AND LOCATION IN MR "UTI" H&P(Borroni) CT SCAN with acute pancreatitis Immunosuppressed--> T cell lymphoma per H&P(Borroni) TREATMENTS / RESULTS AND LOCATION IN MR Daily CBC 04/03 per orders Blood/urine cultures 04/03 per orders IV antibiotics - broad spectrum--> 04/03 VANC 1 gm IV x1, ZOSYN 4.5 gm IV x1 to Rocephin 1gm IV daily 04/03-04/05 per orders IV Fluids--> 04/03 1 L bolus NS, 1 L bolus LR THEN LR AT 100 04/03 to 04/06 per orders (This form is maintained as a part of the permanent medical record) 2014 [employer]. All Rights Reserved Leora Justice, RN, BSN, CCDS [email or web address] [facility]
--- NOTE | 2019-04-06 16:51 | PQF ---
PAPO BARBOSA NIKKI, MD *r [id number] [id number]- [id number] CLINICAL DOCUMENTATION IMPROVEMENT CLARIFICATION FORM: ICD-10 Updated PLEASE DO AN ADDENDUM TO THE PROGRESS NOTE WITH ANY DOCUMENTATION UPDATES OR ADDITIONS AND CARRY THROUGH TO DC SUMMARY. THANK YOU. DATE: 04/06/19 ATTN: Dr. Norwood Please exercise your independent, professional judgment in responding to the clarification form. Clinical indicators are provided on the bottom of this form for your review Please check appropriate box(s): [ x ] Acute Renal Failure (ARF) / Acute Kidney Injury (DUNCAN) [ ] Other Etiology or underlying conditions related to the diagnosis of ARF/ DUNCAN: [ ] Acute Interstitial Nephritis (AIN) [ ] Other: [ ] Other diagnosis [ ] Unable to determine In addition, please specify: Present on Admission (POA): [ x ] Yes [ ] No [ ] Unable to determine National Kidney Foundation Guidelines for CKD Staging Stage I Kidney damage with normal or increased GFRGFR > 90 Stage IIKidney damage with mildly decreased GFRGFR 60-89 Stage III Kidney damage with moderately decreased GFRGFR 30-59 Stage IVKidney damage with severely decreased GFRGFR 16-29 Stage VKidney failureGFR<15 ESRDEnd Stage Renal DiseaseOn dialysis Acute Renal Failure/Acute Kidney Failure defined as: Increases in SCr by (>) 0.3 mg/dl within 48 hours OR- Increases in SCr by (>) 1.5 times baseline, known or presumed to have occurred within the prior 7 days OR- Urine volume < 0.5 ml/kg/hour for 6 hours (KDIGO supplement 2012 for RIFLE/MARIA DOLORES criteria) For continuity of documentation, please document condition throughout progress notes and discharge summary. Thank You. CLINICAL INDICATORS - SIGNS / SYMPTOMS / LABS / RESULTS AND LOCATION IN MR 04/03 bun 16, creat 1.34, GFR 40--bun 14, creat 1.21, GFR 45--04/05 bun 7, creat 0.74, GFR 80 per lab RISK FACTORS / RESULTS AND LOCATION IN MR Dehydration--> NPO orders 04/03; H&P(Borroni): "acute pancreatitis, UTI" "History of T cell lymphoma on chemo" H&P(Borroni) TREATMENTS / RESULTS AND LOCATION IN MR IV fluid challenge result--> IV Fluids--> 04/03 1 L bolus NS, 1 L bolus LR THEN LR AT 100 04/03 to 04/06 per orders daily labs 04/03 per orders (This form is maintained as a part of the permanent medical record) 2014 [employer]. All Rights Reserved Leora Justice RN, BSN, CCDS [email or web address]
--- NOTE | 2019-04-07 08:50 | DIS ---
DATE OF ADMISSION: 04/03/2019 DATE OF DISCHARGE: 04/06/2019 ADMITTING RESIDENT: Ramses Huerta MD ADMITTING ATTENDING: Martha Hinson MD DISCHARGE ATTENDING: Tonya Neely MD DISCHARGE RESIDENT: Fabi Norwood MD CONSULTS: Oncology (Dr. Sin). PROCEDURES PERFORMED: None. IMAGING: CT abdomen/pelvis: Acute pancreatitis, fatty liver, stable bilateral adrenal hyperplasia. PRIMARY DIAGNOSES: Acute pancreatitis, leukocytosis, hypomagnesemia, hypophosphatemia, hypokalemia, hyponatremia, urinary tract infection, and acute kidney injury. SECONDARY DIAGNOSES: T-cell lymphoma, history of B-cell lymphoma, steroid induced diabetes mellitus, hypertension, and hyperlipidemia. DISCHARGE MEDICATIONS: 1. 1 mg estradiol p.o. daily. 2. 80 mg furosemide p.o. daily. 3. 100 mg losartan p.o. daily. 4. 20 mg Protonix p.o. daily. 5. 20 mg rosuvastatin p.o. daily. 6. 300 mg of venlafaxine p.o. daily. 7. 1000 mg metformin p.o. b.i.d. 8. patient's home glipizide medication. DISCONTINUED MEDICATIONS: 1. Magnesium sulfate. 2. Potassium phosphate. 3. docusate. 4. Morphine. 5. Toradol. 6. Senokot. 7. Humalog. 8. Lantus. 9. miralax. 10. Rocephin. 11. Tylenol. 12. Phos nak HISTORY OF PRESENT ILLNESS/HOSPITAL COURSE: The patient is a 63-year-old female with a past medical history significant for B-cell lymphoma, which subsequently progressed to T-cell lymphoma hypertension, hyperlipidemia, and steroid-induced diabetes mellitus who presented to the ED with abdominal pain, fatigue, flatulence, and decreased appetite. Her lipase was found to be 1483 and she was diagnosed with pancreatitis. On admission, she was also found to have leukocytosis with white blood cell count of 25.8 and throughout admission, her electrolytes were also monitored and replaced. On the day of discharge, potassium 3.0, phosphorus of 1.7, magnesium of 1.1, which were also replaced. All of the patient's home medications aside from her venlafaxine were held while she received IV fluids and morphine for pain relief. She was started on an NPO diet and provided with stool softeners and MiraLAX to help with her constipation. On the day of discharge, she had been transitioned to p.o. pain medications and had been able to tolerate solid foods with little abdominal discomfort. Lipase on discharge was 40. The patient was also found to have UTI upon admission and was treated with Rocephin x3 days. Urine culture was negative, just had some skin ugo. She was also treated for DUNCAN while she was hospitalized with IVF hydration. Her creatinine on admission was 1.34 and had been reduced to baseline at 0.[address] Dias, her oncologist, was called and recommended that she be restarted on her home medications and to follow up at [facility] at her scheduled appointment upon discharge. The patient was evaluated on the day of discharge and agreeable to the plan of care of going home on her home medications and following up with Dr. Dias at [facility] later this week for scheduled chemotherapy appointment. DISPOSITION: Stable. DISCHARGE INSTRUCTIONS: 1. Location: Home. 2. Diet: Heart healthy, carb conscious. 3. Activity: As tolerated. 4. Followup: Follow up with Dr. Dias at [facility] at scheduled appointment later this week and PCP within 1 to 2 weeks. Job ID: [id number] [facility]
--- NOTE | 2019-04-08 18:43 | EKG ---
Test Reason : Blood Pressure : / mmHG Vent. Rate : 114 BPM Atrial Rate : 114 BPM P-R Int : 152 ms QRS Dur : 102 ms QT Int : 352 ms P-R-T Axes : 059 034 031 degrees QTc Int : 485 ms Sinus tachycardia Anterior infarct (cited on or before 23-JAN-2007) Abnormal ECG When compared with ECG of 23-JAN-2007 12:55, Vent. rate has increased BY [address] Marco WILKERSON ([id number]) on 04/08/2019 6:43:20 PM Referred By: CLIFFORD Confirmed By:DR. Marco WILKERSON
== END 2019-04-06 15:26 | disposition home or self-care (01) | DRG 438 ==
LOC: ERS 09:04 → T4-B 14:37
PROVIDERS: ADMIT Student in an Organized Health Care Education/Training Program; ATTEND Student in an Organized Health Care Education/Training Program
DX: K85.90 Acute pancreatitis without necrosis or infection, unspecified (principal); R65.11 Systemic inflammatory response syndrome (SIRS) of non-infectious origin with acute organ dysfunction; N17.9 Acute kidney failure, unspecified; E87.1 Hypo-osmolality and hyponatremia; N39.0 Urinary tract infection, site not specified; C91.50 Adult T-cell lymphoma/leukemia (HTLV-1-associated) not having achieved remission; K56.7 Ileus, unspecified; E83.42 Hypomagnesemia; E83.39 Other disorders of phosphorus metabolism; E87.6 Hypokalemia; T38.0X5A Adverse effect of glucocorticoids and synthetic analogues, initial encounter; I10 Essential (primary) hypertension; E78.5 Hyperlipidemia, unspecified; E09.65 Drug or chemical induced diabetes mellitus with hyperglycemia; F32.9 Major depressive disorder, single episode, unspecified; Z87.891 Personal history of nicotine dependence; Z88.1 Allergy status to other antibiotic agents; Z88.8 Allergy status to other drugs, medicaments and biological substances; Z79.899 Other long term (current) drug therapy
CPT/HCPCS: 36415; 36416; 71045; 74177; 76705; 80053; 80061; 81003; 81015; 82010; 82248; 82805; 83605; 83615; 83690; 83735; 84100; 84550; 85025; 87040; 87086; 93005; 93010; J0696; J1642; J1650; J1815; J2270; J2543; J3370; J3475; J3490; J7050; Q9967; S0028

== ENCOUNTER 2019-04-07 11:35 | Inpatient (IN) | payer BC ==
--- NOTE | 2019-04-07 12:09 | RAD ---
EXAM: Single view of the chest HISTORY: Pancreatitis COMPARISON: 04/05/2019 FINDINGS: Single view of the chest shows a normal sized cardiomediastinal silhouette. The Mediport i s unchanged in position. There is no evidence of consolidation, mass, or pleural effusion. The bones are unremarkable. IMPRESSION: No evidence of acute cardiopulmonary disease
[2019-04-07] MEDS ORDERED: Iopamidol-370 76% 500 ML 1 ML ONE (13:24)
[2019-04-07 13:30] LABS: #Lymphocytes 0.4 thou/uL (1.20-3.40); #Monocytes 0.8 thou/uL (0.11-0.59); #Neutrophils 10.8 thou/uL (1.40-6.50); %Basophils 0.2 % (0.0-1.0); %Eosinophils 0.2 % (0.0-10.0); %Lymphocytes 3.4 % (21.0-51.0); %Monocytes 6.6 % (0.0-10.0); %Neutrophils 89.5 % (42.0-75.0); Hemoglobin 8.9 g/dL (12.0-16.0); Mean Corpuscular HGB CONC 32.6 g/dL (32.0-36.0); Mean Corpuscular Hemoglobin 31.2 pg (27.0-31.0); Mean Corpuscular Volume 95.8 fL (78.0-98.0); Mean Platelet Volume 7.9 fL (7.4-10.4); Platelet Count 275 thou/uL (130-400); RBC Distribution Width 17.7 % (11.5-14.5); Red Blood Cell (RBC) Count 2.86 mill/uL (4.20-5.40); White Blood Cell (WBC) Count 12.1 thou/uL (4.8-10.8)
[2019-04-07 13:55] LABS: ALT (SGPT) 25 U/L (8-55); AST (SGOT) 26 U/L (5-34); Alkaline Phosphatase 155 U/L (40-110); Anion Gap 19 mmol/L (10-20); BUN (Urea Nitrogen) 9 mg/dL (9.8-20.1); Calc. Creatinine Clearance 0 mL/min (70-130); Carbon Dioxide 17 mmol/L (23-31); Chloride 104 mmol/L (98-107); Estimated GFR-MDRD 74; Globulin 2.3 g/dL (2.4-3.5); Glucose 319 mg/dL (80-115); Lipase 19 U/L (8-78); Potassium 3.5 mmol/L (3.5-5.1); Protein, Total 5.3 g/dL (6.0-8.3); Sodium 136 mmol/L (136-145)
[2019-04-07 14:18] LABS: CKMB 1.4 ng/mL (0-6.6)
--- NOTE | 2019-04-07 14:48 | PDOC.FPRHP ---
- History of Present Illness Chief Complaint: SOB History of Present Illness: Patient is a 63F with PMHx of T-cell lymphoma currently being treated, B-cell lymphoma, steroid-induced DM, HTN, HLD, depression, and recent admission for pancreatitis that presented with SOB. Patient reports that the SOB began yesterday evening after she got home. Recently discharged 04/07 after being in the hospital for pancreatitis. Had reported of brief SOB yesterday while rolling over in bed before discharge, but was satting well on room air and SOB was temporary, patient was agreeable with discharge at that time; CXR night of 03/05 demonstrated possible atelectasis without pleural effusions. Patient reports that her SOB is exertional, she is not SOB while sitting in bed. Denies chest pain, cough, headache, dysuria, diarrhea, constipation. Endorses chronic rhinorrhea. ED Course: 1L NS, 324mg asa - Allergies/Adverse Reactions Allergies Allergy/AdvReac Type Severity Reaction Status Date / Time buspirone [From BuSpar] Allergy Verified 04/03/19 16:23 lisinopril Allergy Verified 04/03/19 16:23 - Home Medications Medication Instructions Recorded Confirmed Type RX: Estradiol 1 mg PO DAILY 04/03/19 04/07/19 History RX: Furosemide [Lasix] 80 mg PO DAILY 04/03/19 04/07/19 History RX: Losartan Potassium 100 mg PO DAILY 04/03/19 04/07/19 History RX: Pantoprazole Sodium [Protonix] 20 mg PO DAILY 04/03/19 04/07/19 History RX: Rosuvastatin Calcium 20 mg PO DAILY 04/03/19 04/07/19 History RX: Venlafaxine HCl [Venlafaxine 300 mg PO DAILY 04/03/19 04/07/19 History HCl ER] RX: metFORMIN HCl [Metformin HCl 1,000 mg PO BID 04/03/19 04/07/19 History ER] - History PMHx: Currently treated for T-cell lymphoma, Hx of B-Cell lymphoma, steroid- induced DM HTN, HLD, Depression, recent admission for pancreatitis PSHx: Foot Surgery to repair a Lisfranc Fracture FHx: Mother (Lung Cancer) Social: Remote Tobacco Abuse (05/30 PPD for +20 Years) Meds: 20mg rosuvastatin qhs, 150mg venlafaxine 24hr capsule (2 capsules PO QD), 1mg estradiol qd, 80mg furosemide qam, 500mg metformin (2 tab po qd), 100mg losartan po qam, 20mg pantoprazole po qd, 20mg famotidine po qd prn, glipizide Allergies: buspar, lisinorpil, augmentin - Review of Systems General: denies: fever/chills, weight/appetite/sleep changes Eyes: denies: eye pain, vision changes ENT: reports: rhinorrhea. denies: nasal congestion Respiratory: reports: shortness of breath. denies: cough Cardiovascular: reports: edema. denies: chest pain, palpitation Gastrointestinal: denies: nausea, vomiting, diarrhea Genitourinary: denies: incontinence, dysuria Skin: denies: rashes, lesions Musculoskeletal: denies: pain, tenderness Neurological: denies: syncope, seizure Psychological: denies: anxiety, depression - Vital signs BP: [140/76] HR: [113] RR: [23] Tmax: [98.1] Pox: [100]% on [RA] Wt: [106.5kg ] - Physical Exam Constitutional: NAD, awake, alert and oriented HEENT: EOMI, grossly normal vision, grossly normal hearing, MMM Neck: supple, FROM, trachea midline Heart: RRR, normal S1/S2 -Heart: 1+ edema Lungs: no respiratory distress -Lungs: scant crackles throughout Abdomen: soft -Abdomen: slightly ttp mid-epigastric region Musculoskeletal: normal tone, ROM grossly normal Neurological: CN II-XII intact, normal sensation Skin: no rash/lesions, good turgor Heme/Lymphatic: no unusual bruising or bleeding, no purpura Psychiatric: normal mood and affect, good judgment and insight FMR H&P: Results - Labs Result Diagrams: 04/07/19 13:22 04/07/19 13:22 Lab results: WBC 12.1 thou/uL (4.8-10.8) H 04/07/19 13:22 Hgb 8.9 g/dL (12.0-16.0) L 04/07/19 13:22 Hct 27.4 % (36.0-47.0) L 04/07/19 13:22 MCV 95.8 fL (78.0-98.0) 04/07/19 13:22 Plt Count 275 thou/uL (130-400) 04/07/19 13:22 Neutrophils % 89.5 % (42.0-75.0) H 04/07/19 13:22 Sodium 136 mmol/L (136-145) 04/07/19 13:22 Potassium 3.5 mmol/L (3.5-5.1) 04/07/19 13:22 Chloride 104 mmol/L (98-107) 04/07/19 13:22 Carbon Dioxide 17 mmol/L (23-31) L 04/07/19 13:22 BUN 9 mg/dL (9.8-20.1) L 04/07/19 13:22 Creatinine 0.79 mg/dL (0.6-1.1) 04/07/19 13:22 Glucose 319 mg/dL (80-115) H 04/07/19 13:22 Calcium 7.0 mg/dL (7.8-10.44) L 04/07/19 13:22 Total Bilirubin 1.0 mg/dL (0.2-1.2) 04/07/19 13:22 AST 26 U/L (5-34) 04/07/19 13:22 ALT 25 U/L (8-55) 04/07/19 13:22 Alkaline Phosphatase 155 U/L (40-110) H 04/07/19 13:22 CK-MB (CK-2) 1.4 ng/mL (0-6.6) 04/07/19 13:22 B-Natriuretic Peptide 2748.1 pg/mL (0-100) H 04/07/19 13:22 Serum Total Protein 5.3 g/dL (6.0-8.3) L 04/07/19 13:22 Albumin 3.0 g/dL (3.4-4.8) L 04/07/19 13:22 Lipase 19 U/L (8-78) 04/07/19 13:22 - Radiology Interpretation Chest x-ray Status: report reviewed by me (Negative for acute intrathoracic process) Other Status: report reviewed by me (CTA: no evidence of pulmonary thrombolism, small bilateral pleural effusions with adjacent atelectasis, possible enlarged right axillary lymph node) FMR H&P: A/P - Problem List (1) Pulmonary edema Current Visit: Yes Status: Acute Code(s): J81.1 - CHRONIC PULMONARY EDEMA (2) Elevated d-dimer Current Visit: Yes Status: Acute Code(s): R79.89 - OTHER SPECIFIED ABNORMAL FINDINGS OF BLOOD CHEMISTRY (3) Elevated troponin Current Visit: Yes Status: Acute Code(s): R79.89 - OTHER SPECIFIED ABNORMAL FINDINGS OF BLOOD CHEMISTRY (4) History of B-cell lymphoma Current Visit: No Status: Acute Code(s): Z85.72 - PERSONAL HISTORY OF NON- HODGKIN LYMPHOMAS (5) Depression Current Visit: No Status: Chronic Code(s): F32.9 - MAJOR DEPRESSIVE DISORDER , SINGLE EPISODE, UNSPECIFIED (6) HLD (hyperlipidemia) Current Visit: No Status: Chronic Code(s): E78.5 - HYPERLIPIDEMIA, UNSPECIFIED (7) HTN (hypertension) Current Visit: No Status: Chronic Code(s): I10 - ESSENTIAL (PRIMARY) HYPERTENSION (8) T-cell lymphoma Current Visit: No Status: Chronic Code(s): C85.90 - NON-HODGKIN LYMPHOMA, UNSPECIFIED, UNSPECIFIED SITE - Plan Patient is a 63F with PMHx of T-cell lymphoma currently being treated, B-cell lymphoma, steroid-induced DM, HTN, HLD, depression, and recent admission for pancreatitis that presented with SOB. #Pulmonary Edema, likely 2/2 fluid overload #Elevated trop -recent admission for pancreatitis, possible 3rd spacing of fluid -scant crackles throughout on respiratory exam -BNP: 2748 -Trop 0.074>0.071, likely 2/2 fluid overload; patient denies cp at this time, continue to trend -EKG: sinus tach -strict I&O -IV lasix -echo ordered, will follow #Elevated D-dimer -d-dimer 3.11, likely elevated due to cancer -patient actively refused lovenox and SCDs during last admission except for last day, despite counseling about her higher risk for blood clots -CTA chest negative for pulmonary embolism #Steroid-induced DM -continue home meds -hyperglycemia protocol -ISS #HTN -continue home meds -hydralazine prn #HLD -continue home meds #Depression -continue home meds #Recent pancreatitis -patient reports she is tolerating a normal diet well, having normal BM Diet: CC DVT ppx: lovenox Code: Full Dispo: admitted for fluid diuresis, strict I&O, echo pending, trending trops PCP: Dr. Babin, Oncology: Dr. Dias FMR H&P: Upper Level - Plan Date/Time: 04/07/19 1446 I, Brian Schuler, , have evaluated this patient and agree with findings/plan as outlined by spring intern resident. Pertinent changes/additions are listed here. This is a 63 yo female with a pmh T-cell lymphoma, hx of B-cell lymphoma, steroid induced diabetes mellitus, and HLD who was recently discharged from our service following the treatment of presumptive chemotherapy induced pancreatitis. She was also treated for UTI, DUNCAN, hypokalemia, and hyponatremia. Pt received had received approximately 10 L during that hospitalization and is the likely culprit. Pt has no pmh of CHF. Now, pt is presenting to the ER with a cc of SOB. She states she got home and was feeling worsening JACOBSON that led her to return. She denies cough, chest pain, dizziness, numbness, or weakness. She does report overall deconditioning. She does not require home O2 on a regular basis. She does report low back pain, musculoskeletal in nature, chronic. Objective: Vital signs as above General: NAD Cardio: RRR, no murmur Lungs: basilar crackles, difficult exam due to body habitus, speaking in complete sentences Extremities: 2+ pitting edema to mid thigh Please see spring intern note for further information. A/P: Pulmonary edema 2/2 iatrogenic fluid resuscitation from pancreatitis -Admit to tele obs -Concern for CHF, pending AM echo -IV lasix -Monitor renal status with AM BMP -Strict I&Os -BNP 2748 -CXR no acute cardiopulmonary disease Elevated troponin -Trending down, trend x3 total -Likely from fluid overload Elevated D-dimer -Negative CTA -prophylactic lovenox Chronic conditions as managed by spring intern note above Code: Full Prophylaxis: lovenox Family: Friend at bedside Fluids: SL Diet: CC Disposition: DC in 1-2 days PCP: Dr. Babin Addendum - Attending - Attending Attestation Date/Time: 04/07/19 369 I personally evaluated the patient and discussed the management with Dr. Norwood/ Harini I agree with the History, Examination, Assessment and Plan documented above with any addition or exceptions noted below. 63 yo WF PMH lymphoma currently undergoing treatment who was d/c from hospital 2 days ago after undergoing treatment for acute pancreatitis for 3 days. received 8320mL total fluid. [place] progressively worsening JACOBSON today. states she has difficulty lying flat. ER given ASA and NS x1L. Found to be in heart failure. Exam significant for 1+pitting edema and bibasalir crackles in lungs. No hx CHF. EKG showed sinus tachycardia with worsening prolongation of QTc interval since last EKG [address] No new [address] changes or T-wave abnormalities. CTA-chest reviewed by me shows bilateral pleural effusions, no filling defects. Admitted for pulmonary edema likely iatrogenic in nature due to fluids received from tx of pancreatitis. Given IV lasix on the floor. continue IV lasix. strict I&O. TTE tomorrow since no records on file. Pending results, may need cardiology consultation. Troponin mildly elevated and down trending. Will monitor on telemetry. Avoid QTc prolonging agents. Chronic problems as described above.
--- NOTE | 2019-04-07 15:38 | CT ---
EXAM: CTA of the chest HISTORY: Shortness of breath COMPARISON: PET/CT 10/09/2014 TECHNIQUE: Multiple contiguous axial images were obtained a CTA of the chest with contrast per pulmon kami embolism protocol. 3-D oblique MIP reformats and direct coronal reformats were performed. FINDINGS: HEART: Normal in size without focal cardiac abnormality. PULMONARY ARTERIES: Normal in caliber without filling defects to suggest pulmonary emboli. MEDIASTINUM: Mildly prominent mediastinal lymph nodes are seen. The largest node is in the prevascula r space measuring 2.0 cm in greatest dimension. LUNGS: No focal infiltrates or masses. PLEURAL SPACE: Small bilateral pleural effusions with adjacent atelectasis. CHEST WALL SOFT TISSUES: Right Mediport with its tip in the superior vena cava. There is a 2.2 cm sof t tissue density lesion in the right axilla which may represent an enlarged lymph node. VISUALIZED OSSEOUS STRUCTURES: Unremarkable VISUALIZED SUBDIAPHRAGMATIC STRUCTURES: Large fatty liver. There may be stranding changes adjacent to the tail the pancreas. IMPRESSION: 1. No evidence of pulmonary thromboembolism 2. Small bilateral pleural effusions with adjacent atelectasis 3. Possible enlarged right axillary lymph node 4. Mildly prominent mediastinal lymph nodes. 5. Fatty liver
[2019-04-07] MEDS ORDERED: Aspirin Chewable 81 MG TAB ONE (16:20)
[2019-04-07] MEDS ORDERED: Ondansetron ODT 4 MG TAB PO PRN (16:42)
[2019-04-07] MEDS ORDERED: HumaLOG 300 UNITS/3 ML VIAL SC PRN (16:45)
[2019-04-07] MEDS ORDERED: Dextrose 5% in Water 1,000 ML IV PRN (16:45)
[2019-04-07] MEDS ORDERED: Dextrose 50% Abboject 50 ML SYRINGE SLOW IVP PRN (16:45)
[2019-04-07] MEDS ORDERED: Furosemide 40 MG/4 ML VIAL SLOW IVP SCH (16:45)
[2019-04-07 17:00] LABS: Troponin I 0.071 ng/mL (< 0.028)
[2019-04-07 18:01] VITALS: BMI 40.9
[2019-04-07] MEDS ORDERED: hydrALAZINE 20 MG/ML VIAL SLOW IVP PRN (18:07)
[2019-04-07] MEDS ORDERED: metFORMIN XR 500 MG TAB PO SCH (18:30)
[2019-04-07 20:01] LABS: Troponin I 0.091 ng/mL (< 0.028)
[2019-04-07] MEDS ORDERED: traMADol HCl 50 MG TAB PO PRN (21:34)
[2019-04-07] MEDS: Acetaminophen 325 MG TAB PO PRN (21:44)
--- NOTE | 2019-04-08 05:19 | PDOC.FM ---
- Subjective Subjective: Patient doing well this morning, reports that her respiratory status is greatly improved from yesterday. She reports that she has been urinating frequently. Reports that she slept well last night, tylenol helped with her back pain. Denies chest pain or SOB this am. Discussed that we will continue to diurese her today, will also get an echo today. Patient agreeable with plan of care. - Objective Vital Signs & Weight: Vital Signs (12 hours) Temp Pulse Resp BP Pulse Ox 04/08/19 03:00 98.1 F 92 14 139/65 97 04/07/19 19:35 98.9 F 102 H 20 155/72 H 99 04/07/19 18:13 98.5 F 04/07/19 17:45 103 H 22 H 179/83 H 98 Weight Weight 101.605 kg I&O: 04/06/19 04/07/19 04/08/19 06:59 06:59 06:59 Output Total 450 Balance -450 Result Diagrams: 04/08/19 06:18 04/08/19 12:01 EKG Reviewed by me: Yes (sinus 90s) Phys Exam - Physical Examination Constitutional: NAD HEENT: moist MMs, sclera anicteric Neck: supple, full ROM scant crackles lower lung bases bilaterally Cardiovascular: RRR, no significant murmur Gastrointestinal: soft, positive bowel sounds Musculoskeletal: pulses present trace edema BLE Neurological: non-focal, normal sensation Psychiatric: normal affect, A&O x 3 Skin: no rash, normal turgor Dx/Plan (1) Pulmonary edema Code(s): J81.1 - CHRONIC PULMONARY EDEMA Status: Acute (2) Elevated d-dimer Code(s): R79.89 - OTHER SPECIFIED ABNORMAL FINDINGS OF BLOOD CHEMISTRY Status : Acute (3) Elevated troponin Code(s): R79.89 - OTHER SPECIFIED ABNORMAL FINDINGS OF BLOOD CHEMISTRY Status : Acute (4) History of B-cell lymphoma Code(s): Z85.72 - PERSONAL HISTORY OF NON-HODGKIN LYMPHOMAS Status: Acute (5) Depression Code(s): F32.9 - MAJOR DEPRESSIVE DISORDER, SINGLE EPISODE, UNSPECIFIED Status : Chronic (6) HLD (hyperlipidemia) Code(s): E78.5 - HYPERLIPIDEMIA, UNSPECIFIED Status: Chronic (7) HTN (hypertension) Code(s): I10 - ESSENTIAL (PRIMARY) HYPERTENSION Status: Chronic (8) T-cell lymphoma Code(s): C85.90 - NON-HODGKIN LYMPHOMA, UNSPECIFIED, UNSPECIFIED SITE Status: Chronic (9) Hypokalemia Code(s): E87.6 - HYPOKALEMIA Status: Acute - Plan Plan: Patient is a 63F with PMHx of T-cell lymphoma currently being treated, B-cell lymphoma, steroid-induced DM, HTN, HLD, depression, and recent admission for pancreatitis that was admitted for pulmonary edema #Pulmonary Edema, likely 2/2 fluid overload #Elevated trop -recent admission for pancreatitis, possible 3rd spacing of fluid -scant crackles bilateral lower lobes on respiratory exam, improved from admission -BNP: 2748 -Trop 0.074>0.071>0.091>0.087, likely 2/2 fluid overload; patient denies cp this morning -strict I&O -IV lasix, will add additional dose this afternoon and will monitor BMP for kidney function -echo ordered, will follow #Elevated D-dimer -d-dimer 3.11, likely elevated due to cancer -patient actively refused lovenox and SCDs during last admission except for last day, despite counseling about her higher risk for blood clots -CTA chest negative for pulmonary embolism -patient agreeable to having lovenox during this admission #Hypokalemia -potassium 3.0 this am, repleted -will follow #Steroid-induced DM -continue home meds -hyperglycemia protocol -ISS #HTN -continue home meds -hydralazine prn #HLD -continue home meds #Depression -continue home meds #Recent pancreatitis -patient reports she is tolerating a normal diet well, having normal BM Diet: CC DVT ppx: lovenox Code: Full Dispo: admitted for fluid diuresis, strict I&O, echo pending, trending trops PCP: Dr. Babin, Oncology: Dr. Stapleton Addendum - Attending - Attending Attestation Date/Time: 04/08/19 9900 I personally evaluated the patient and discussed the management with Dr. Norwood. I agree with the History, Examination, Assessment and Plan documented above with any addition or exceptions noted below. Pt was getting echo this morning during visit. Will increase lasix to help with lower extremity edema. Awaiting echo results. Replace electrolytes as needed.
[2019-04-08 06:48] LABS: #Lymphocytes 0.8 thou/uL (1.20-3.40); #Neutrophils 9.1 thou/uL (1.40-6.50); %Basophils 0.3 % (0.0-1.0); %Eosinophils 0.3 % (0.0-10.0); %Lymphocytes 7.3 % (21.0-51.0); %Monocytes 9.4 % (0.0-10.0); %Neutrophils 82.8 % (42.0-75.0); Hemoglobin 8.5 g/dL (12.0-16.0); Mean Corpuscular HGB CONC 33.5 g/dL (32.0-36.0); Mean Corpuscular Hemoglobin 32.2 pg (27.0-31.0); Mean Corpuscular Volume 96.3 fL (78.0-98.0); Platelet Count 273 thou/uL (130-400); RBC Distribution Width 17.8 % (11.5-14.5); Red Blood Cell (RBC) Count 2.63 mill/uL (4.20-5.40)
[2019-04-08 07:02] LABS: Anion Gap 16 mmol/L (10-20); BUN (Urea Nitrogen) 12 mg/dL (9.8-20.1); Calc. Creatinine Clearance 117 mL/min (70-130); Calcium 7.3 mg/dL (7.8-10.44); Carbon Dioxide 23 mmol/L (23-31); Chloride 102 mmol/L (98-107); Estimated GFR-MDRD 72; Glucose 250 mg/dL (80-115); Sodium 138 mmol/L (136-145)
[2019-04-08 07:12] LABS: Troponin I 0.087 ng/mL (< 0.028)
[2019-04-08] MEDS ORDERED: Potassium Chloride 20 MEQ TAB PO SCH ×3 (07:30→18:00)
[2019-04-08 07:47] LABS: Magnesium 1.3 mg/dL (1.6-2.6)
[2019-04-08 07:54] LABS: Phosphorus 1.9 mg/dL (2.3-4.7)
[2019-04-08] MEDS ORDERED: Potassium Phosphate 30 MMOL in Sodium Chloride 0.9% 500 ML IVPB SCH (08:30)
[2019-04-08] MEDS ORDERED: Magnesium 2 GM/50 ML 2 GM in Premix Bag 1 BAG IVPB SCH ×2 (08:30→13:00)
[2019-04-08] MEDS ORDERED: Furosemide 40 MG/4 ML VIAL SLOW IVP SCH ×2 (09:00→14:00)
[2019-04-08] MEDS: Venlafaxine HCl XR 150 MG CAP PO SCH (09:26)
[2019-04-08] MEDS: metFORMIN XR 500 MG TAB PO SCH ×2 (09:27→17:32)
[2019-04-08] MEDS: Losartan 25 MG TAB PO SCH (09:27)
[2019-04-08] MEDS: Rosuvastatin 20 MG TAB PO SCH (09:28)
[2019-04-08] MEDS: Enoxaparin Sodium 40 MG/0.4 ML SYRINGE SC SCH (09:28)
[2019-04-08] MEDS: Furosemide 100 MG/10 ML VIAL SLOW IVP SCH (09:50)
[2019-04-08] MEDS: HumaLOG 300 UNITS/3 ML VIAL SC PRN ×2 (11:03→17:34)
[2019-04-08 12:33] LABS: Anion Gap 18 mmol/L (10-20); BUN (Urea Nitrogen) 13 mg/dL (9.8-20.1); Calc. Creatinine Clearance 102 mL/min (70-130); Calcium 7.5 mg/dL (7.8-10.44); Carbon Dioxide 25 mmol/L (23-31); Chloride 97 mmol/L (98-107); Estimated GFR-MDRD 61; Glucose 312 mg/dL (80-115); Magnesium 1.6 mg/dL (1.6-2.6); Phosphorus 2.2 mg/dL (2.3-4.7); Sodium 137 mmol/L (136-145)
[2019-04-08 12:37] LABS: Potassium 2.8 mmol/L (3.5-5.1)
[2019-04-08] MEDS: Acetaminophen 325 MG TAB PO PRN (21:11)
[2019-04-09] MEDS: Acetaminophen 325 MG TAB PO PRN ×2 (01:26→15:50)
--- NOTE | 2019-04-09 05:32 | PDOC.FM ---
- Subjective Subjective: Patient doing well this morning. Reports she feels "dry" as she urinated multiple times yesterday. Reports that she is still having some abdominal tenderness from her recent pancreatitis, but can tolerate food well, though it does not taste good due to the chemotherapy. - Objective Vital Signs & Weight: Vital Signs (12 hours) Temp Pulse Resp BP Pulse Ox 04/09/19 04:00 97.9 F 93 18 123/70 98 04/08/19 19:25 98.5 F 91 16 125/70 97 Weight Admit Weight 101.605 kg Weight 101.605 kg I&O: 04/07/19 04/08/19 04/09/19 06:59 06:59 06:59 Output Total 450 Balance -450 Result Diagrams: 04/10/19 08:59 04/10/19 05:11 Phys Exam - Physical Examination Constitutional: NAD HEENT: moist MMs, sclera anicteric Neck: supple, full ROM Respiratory: no wheezing, clear to auscultation bilateral Cardiovascular: RRR, no significant murmur Gastrointestinal: soft, positive bowel sounds mildly ttp upper abdomen Musculoskeletal: no edema, pulses present Neurological: normal sensation, moves all 4 limbs Psychiatric: normal affect, A&O x 3 Skin: no rash, normal turgor Dx/Plan (1) Pulmonary edema Code(s): J81.1 - CHRONIC PULMONARY EDEMA Status: Acute (2) Elevated d-dimer Code(s): R79.89 - OTHER SPECIFIED ABNORMAL FINDINGS OF BLOOD CHEMISTRY Status : Acute (3) Elevated troponin Code(s): R79.89 - OTHER SPECIFIED ABNORMAL FINDINGS OF BLOOD CHEMISTRY Status : Acute (4) History of B-cell lymphoma Code(s): Z85.72 - PERSONAL HISTORY OF NON-HODGKIN LYMPHOMAS Status: Acute (5) Depression Code(s): F32.9 - MAJOR DEPRESSIVE DISORDER, SINGLE EPISODE, UNSPECIFIED Status : Chronic (6) HLD (hyperlipidemia) Code(s): E78.5 - HYPERLIPIDEMIA, UNSPECIFIED Status: Chronic (7) HTN (hypertension) Code(s): I10 - ESSENTIAL (PRIMARY) HYPERTENSION Status: Chronic (8) T-cell lymphoma Code(s): C85.90 - NON-HODGKIN LYMPHOMA, UNSPECIFIED, UNSPECIFIED SITE Status: Chronic (9) Hypokalemia Code(s): E87.6 - HYPOKALEMIA Status: Acute - Plan Plan: Patient is a 63F with PMHx of T-cell lymphoma currently being treated, B-cell lymphoma, steroid-induced DM, HTN, HLD, depression, and recent admission for pancreatitis that was admitted for pulmonary edema #Pulmonary Edema, likely 2/2 fluid overload #Elevated trop -recent admission for pancreatitis, possible 3rd spacing of fluid -lungs CTAB on exam today, much improved -BNP: 2748 -Trop 0.074>0.071>0.091>0.087, likely 2/2 fluid overload; patient denies cp this morning -strict I&O -IV lasix this morning -echo ordered, read pending -will see how patient feels throughout today, and possibly d/c later this afternoon with encouragement of patient to continue her home lasix #Elevated D-dimer -d-dimer 3.11, likely elevated due to cancer -patient actively refused lovenox and SCDs during last admission except for last day, despite counseling about her higher risk for blood clots -CTA chest negative for pulmonary embolism -patient agreeable to having lovenox during this admission #Hypokalemia -potassium wnl this am -will follow #Steroid-induced DM -continue home meds -hyperglycemia protocol -ISS -5u SC Lantus this am per short-acting requirements 04/08 #HTN -continue home meds -hydralazine prn #HLD -continue home meds #Depression -continue home meds #Recent pancreatitis -patient reports she is tolerating a normal diet well, having loose BM -c diff neg #Hypophatemia -low this morning -replete and monitor as necessary Diet: CC DVT ppx: lovenox Code: Full Dispo: admitted for fluid diuresis, strict I&O, echo report pending; possible d/ c later today pending how patient feels PCP: Dr. Babin, Oncology: Dr. Stapleton Addendum - Attending - Attending Attestation Date/Time: 04/09/19 1045 I personally evaluated the patient and discussed the management with Dr. Norwood. I agree with the History, Examination, Assessment and Plan documented above with any addition or exceptions noted below. Pt's echo showed decreased EF. Cardiology is repeating echo to verify the EF was correct. Continue diuresis.
[2019-04-09 05:55] LABS: Anion Gap 14 mmol/L (10-20); BUN (Urea Nitrogen) 13 mg/dL (9.8-20.1); Calc. Creatinine Clearance 114 mL/min (70-130); Calcium 7.2 mg/dL (7.8-10.44); Carbon Dioxide 26 mmol/L (23-31); Chloride 101 mmol/L (98-107); Estimated GFR-MDRD 70; Glucose 270 mg/dL (80-115); Magnesium 1.6 mg/dL (1.6-2.6); Phosphorus 2.1 mg/dL (2.3-4.7); Potassium 3.6 mmol/L (3.5-5.1); Sodium 137 mmol/L (136-145)
[2019-04-09] MEDS ORDERED: Potassium Phosphate 30 MMOL in Sodium Chloride 0.9% 500 ML IVPB SCH (07:00)
[2019-04-09] MEDS: metFORMIN XR 500 MG TAB PO SCH ×2 (08:24→15:49)
[2019-04-09] MEDS: Enoxaparin Sodium 40 MG/0.4 ML SYRINGE SC SCH (08:24)
[2019-04-09] MEDS: Furosemide 100 MG/10 ML VIAL SLOW IVP SCH (08:25)
[2019-04-09] MEDS: Losartan 25 MG TAB PO SCH (08:27)
[2019-04-09] MEDS: Rosuvastatin 20 MG TAB PO SCH (08:28)
[2019-04-09] MEDS: Venlafaxine HCl XR 150 MG CAP PO SCH (08:28)
[2019-04-09] MEDS ORDERED: Insulin Glargine 5 UNITS in Pre-Filled Syringe 1 EACH SC SCH (09:00)
[2019-04-09] MEDS ORDERED: Insulin Glargine 15 UNITS in Pre-Filled Syringe 1 EACH SC SCH ×3 (09:00→21:00)
[2019-04-09] MEDS: HumaLOG 300 UNITS/3 ML VIAL SC PRN ×3 (09:06→18:32)
--- NOTE | 2019-04-09 14:22 | CON ---
DATE OF CONSULTATION: HISTORY OF PRESENT ILLNESS: The patient is a 63-year-old woman with a history of lymphoma, who presented with increasing dyspnea. The patient has no previous cardiac history. The patient is undergoing chemotherapy for lymphoma. She presented with pancreatitis. She was actively hydrated. The patient developed increasing dyspnea. She denied having any chest discomfort. PAST MEDICAL HISTORY: 1. Lymphoma. 2. Hypertension. 3. Steroid-induced diabetes. PAST SURGICAL HISTORY: Hysterectomy, and foot surgery. SOCIAL HISTORY: Former smoker. MEDICATIONS: 1. Lasix 80 daily. 2. Estradiol 1 daily. 3. Metformin 1000 b.i.d. 4. Venlafaxine 300 daily. 5. Crestor 20 at bedtime. 6. Protonix 20 daily. 7. Losartan 100 daily. SOCIAL HISTORY: Former smoker. ALLERGIES: LISINOPRIL AND BUSPAR. FAMILY HISTORY: No strong family history of heart disease. DIAGNOSTIC DATA: Her EKG revealed sinus tachycardia with poor R-wave progression, prolonged QT interval. Chest x-ray revealed normal cardiac silhouette with no evidence of edema. Echocardiogram revealed moderate decrease in left ventricular ejection fraction of 30% to 35%, severe aortic regurgitation. IMPRESSION: 1. Congestive heart failure. 2. Cardiomyopathy. 3. Lymphoma. 4. Steroid-induced diabetes. 5. Hypertension. 6. Aortic regurgitation. 7. Obesity. PLAN: This patient presents with congestive heart failure after being actively hydrated. Her ejection fraction appears to be diminished. We will repeat the echocardiogram and try to obtain better images. The most likely etiology of the cardiomyopathy is secondary to chemotherapy. We will switch the patient to Entresto. We will start low-dose Coreg. We will add spironolactone. We will follow this patient with you through her hospitalization. Job ID: [id number] [facility]
[2019-04-09] MEDS: Carvedilol 6.25 MG TAB PO SCH (15:49)
--- NOTE | 2019-04-10 05:27 | PDOC.FM ---
- Subjective Subjective: Patient doing well this morning. Reports that she was able to walk around yesterday and did not feel SOB at that time. Met with cardiology yesterday, they started her on new medications for CHF. Discussed CHF with patient this morning, patient agreeable to current plan of care. - Objective Vital Signs & Weight: Vital Signs (12 hours) Temp Pulse Resp BP BP Pulse Ox 04/10/19 04:00 97.8 F 82 18 116/58 L 98 04/09/19 19:10 97.9 F 78 16 113/57 L 98 Weight Admit Weight 101.605 kg Weight 101.605 kg I&O: 04/08/19 04/09/19 04/10/19 06:59 06:59 06:59 Intake Total 970 Output Total 450 Balance -450 970 Result Diagrams: 04/10/19 08:59 04/10/19 05:11 EKG Reviewed by me: Yes (sinus 80s-100s) Phys Exam - Physical Examination Constitutional: NAD HEENT: moist MMs, sclera anicteric Neck: supple, full ROM Respiratory: no wheezing, clear to auscultation bilateral Cardiovascular: RRR, no significant murmur Gastrointestinal: soft, non-tender Musculoskeletal: no edema, pulses present Neurological: normal sensation, moves all 4 limbs Psychiatric: normal affect, A&O x 3 Skin: no rash, normal turgor Deviation from normal: bruising on bilateral arms due to needle sticks Dx/Plan (1) Pulmonary edema Code(s): J81.1 - CHRONIC PULMONARY EDEMA Status: Acute (2) Elevated d-dimer Code(s): R79.89 - OTHER SPECIFIED ABNORMAL FINDINGS OF BLOOD CHEMISTRY Status : Acute (3) Elevated troponin Code(s): R79.89 - OTHER SPECIFIED ABNORMAL FINDINGS OF BLOOD CHEMISTRY Status : Acute (4) History of B-cell lymphoma Code(s): Z85.72 - PERSONAL HISTORY OF NON-HODGKIN LYMPHOMAS Status: Acute (5) Depression Code(s): F32.9 - MAJOR DEPRESSIVE DISORDER, SINGLE EPISODE, UNSPECIFIED Status : Chronic (6) HLD (hyperlipidemia) Code(s): E78.5 - HYPERLIPIDEMIA, UNSPECIFIED Status: Chronic (7) HTN (hypertension) Code(s): I10 - ESSENTIAL (PRIMARY) HYPERTENSION Status: Chronic (8) T-cell lymphoma Code(s): C85.90 - NON-HODGKIN LYMPHOMA, UNSPECIFIED, UNSPECIFIED SITE Status: Chronic (9) Hypokalemia Code(s): E87.6 - HYPOKALEMIA Status: Acute - Plan Plan: Patient is a 63F with PMHx of T-cell lymphoma currently being treated, B-cell lymphoma, steroid-induced DM, HTN, HLD, depression, and recent admission for pancreatitis that was admitted for pulmonary edema, now new-onset CHF #Pulmonary Edema, likely 2/2 fluid overload #Elevated trop -recent admission for pancreatitis, possible 3rd spacing of fluid -lungs CTAB on exam today with good inspiratory effort, much improved -BNP: 2748 -Trop 0.074>0.071>0.091>0.087, likely 2/2 fluid overload; patient denies cp this morning -strict I&O -Patient reports that she is not SOB with walking, doing much better than during admission #New-Onset CHF -echo: 35-40%, mildly dilated left atrium, mildly increased left ventricular size, e/a flow reversal suggestive of diastolic dysfunction, severe mitral regurgitation, mild to moderate aortic regurgitation, mild tricuspid regurgitation -Dr. Pathak, cardiology, consulted, appreciate recs -suggests cardiomyopathy likely due to chemotherapy -started on carvedilol and spironolactone, entresto? #Elevated D-dimer -d-dimer 3.11, likely elevated due to cancer -patient actively refused lovenox and SCDs during last admission except for last day, despite counseling about her higher risk for blood clots -CTA chest negative for pulmonary embolism -patient agreeable to having lovenox during this admission #Hypokalemia -potassium wnl this am -will follow #Steroid-induced DM -continue home meds -hyperglycemia protocol -ISS -18u SC Lantus this am per short-acting requirements 04/08 -A1C pending #HTN -continue home meds -hydralazine prn #HLD -continue home meds #Depression -continue home meds #Recent pancreatitis -patient reports she is tolerating a normal diet well -c diff neg #Hypophosphatemia -wnl this morning #Hypomagnesemia -low this morning -replete and monitor as necessary Diet: CC DVT ppx: lovenox Code: Full Dispo: admitted for fluid diuresis, strict I&O, cardiology following, appreciate recs; will likely d/c today with new CHF meds and have patient f/u with cardiology outpatient PCP: Dr. Babin, Oncology: Dr. Stapleton Addendum - Attending - Attending Attestation Date/Time: 04/10/19 3052 I personally evaluated the patient and discussed the management with Dr. Norwood. I agree with the History, Examination, Assessment and Plan documented above with any addition or exceptions noted below. Patient's repeat echo shows EF 35-40%. She has been started on heart failure drugs. Can d/c home and f/u with cards outpt.
[2019-04-10 06:41] LABS: Anion Gap 17 mmol/L (10-20); BUN (Urea Nitrogen) 14 mg/dL (9.8-20.1); Calc. Creatinine Clearance 114 mL/min (70-130); Calcium 7.3 mg/dL (7.8-10.44); Carbon Dioxide 24 mmol/L (23-31); Chloride 101 mmol/L (98-107); Estimated GFR-MDRD 73; Glucose 186 mg/dL (80-115); Magnesium 1.3 mg/dL (1.6-2.6); Phosphorus 3.1 mg/dL (2.3-4.7); Potassium 4.6 mmol/L (3.5-5.1); Sodium 137 mmol/L (136-145)
[2019-04-10] MEDS ORDERED: Spironolactone 25 MG TAB PO SCH (08:00)
[2019-04-10] MEDS ORDERED: Insulin Glargine 18 UNITS in Pre-Filled Syringe 1 EACH SC SCH (09:00)
[2019-04-10] MEDS ORDERED: Magnesium Chloride 64 MG TAB PO SCH (09:00)
[2019-04-10 09:26] LABS: #Lymphocytes 1.2 thou/uL (1.20-3.40); #Monocytes 1.8 thou/uL (0.11-0.59); #Neutrophils 12.8 thou/uL (1.40-6.50); %Basophils 0.3 % (0.0-1.0); %Eosinophils 0.2 % (0.0-10.0); %Lymphocytes 7.8 % (21.0-51.0); %Monocytes 11.1 % (0.0-10.0); %Neutrophils 80.7 % (42.0-75.0); Hemoglobin 9.6 g/dL (12.0-16.0); Mean Corpuscular HGB CONC 32.7 g/dL (32.0-36.0); Mean Corpuscular Hemoglobin 31.4 pg (27.0-31.0); Mean Corpuscular Volume 96.1 fL (78.0-98.0); Mean Platelet Volume 8.1 fL (7.4-10.4); Platelet Count 397 thou/uL (130-400); RBC Distribution Width 17.7 % (11.5-14.5); Red Blood Cell (RBC) Count 3.06 mill/uL (4.20-5.40); White Blood Cell (WBC) Count 15.8 thou/uL (4.8-10.8)
[2019-04-10] MEDS: Carvedilol 6.25 MG TAB PO SCH ×2 (09:43→17:46)
[2019-04-10] MEDS: Venlafaxine HCl XR 150 MG CAP PO SCH (09:44)
[2019-04-10] MEDS: Rosuvastatin 20 MG TAB PO SCH (09:45)
[2019-04-10] MEDS: metFORMIN XR 500 MG TAB PO SCH ×2 (09:45→17:46)
[2019-04-10] MEDS: Enoxaparin Sodium 40 MG/0.4 ML SYRINGE SC SCH (09:46)
[2019-04-10] MEDS: HumaLOG 300 UNITS/3 ML VIAL SC PRN ×2 (09:47→12:55)
[2019-04-10 09:56] LABS: Hemoglobin A1c 7.9 % (4.0-6.0)
[2019-04-10] MEDS ORDERED: Sacubitril 24.5 MG/Valsartan 25.5 MG TABLET PO SCH (15:45)
[2019-04-10 16:16] VITALS: TEMP 98.1
[2019-04-10 17:47] VITALS: BP 141/66
--- NOTE | 2019-04-12 16:59 | DIS ---
DATE OF ADMISSION: 04/07/2019 DATE OF DISCHARGE: 04/10/2019 ADMITTING RESIDENT: Fabi Norwood MD ADMITTING ATTENDING: Enrique Dewey MD DISCHARGE ATTENDING: Tonya Neely MD DISCHARGE RESIDENT: Fabi Norwood MD. CONSULTS: Cardiology, Cardiac Rehab, Heart Failure Disease Management, dietitian, and Case Management. PROCEDURES PERFORMED: None. IMAGING STUDIES: Chest x-ray: No evidence of acute cardiopulmonary disease. CTA: No evidence of PE. Small bilateral pleural effusions with adjacent atelectasis. Possible enlarged right axillary lymph node. Echo: EF 30% to 35%, mildly dilated left atrium, mild mitral regurgitation, severe aortic regurgitation, mild tricuspid regurgitation, and normal pulmonary artery pressure. Repeat echo: EF 35% to 40%, mildly dilated left atrium, mild increase of left ventricular size, E/A reversal suggestive of diastolic dysfunction, severe mitral regurgitation, [id number] aortic regurgitation, and mild tricuspid regurgitation. PRIMARY DIAGNOSES: Pulmonary edema, new onset congestive heart failure, elevated troponin, elevated D-dimer, hypokalemia, and hypophosphatemia. SECONDARY DIAGNOSES: Steroid-induced diabetes mellitus, hypertension, Hyperlipidemia, depression, and recent pancreatitis. DISCHARGE MEDICATIONS: 1. Carvedilol 6.25 mg p.o. b.i.d. with meals. 2. Estradiol 1 mg p.o. daily. 3. Furosemide 80 mg p.o. daily. 4. Levothyroxine 75 mcg 1 tablet p.o. daily. 5. Pantoprazole 20 mg p.o. daily. 6. Rosuvastatin 20 mg p.o. daily. 7. Entresto 24.5 mg-25.5 mg 1 tablet p.o. b.i.d. 8. Spironolactone 25 mg p.o. q.a.m. 9. Venlafaxine 300 mg p.o. daily. 10. Glipizide 5 mg tablet 1 p.o. daily. 11. Metformin 1000 mg p.o. b.i.d. DISCONTINUED MEDICATIONS: 1. Lovenox. 2. Tylenol. 3. Lantus. 4. Humalog. 5. Losartan. 6. Magnesium. 7. Potassium chloride. 8. Tramadol. HISTORY OF PRESENT ILLNESS/HOSPITAL COURSE: The patient is a 63-year-old female with recent hospitalization for pancreatitis, who was admitted for pulmonary edema. During her recent admission, she had fluid resuscitation, and a chest x-ray before discharge had demonstrated no acute cardiopulmonary process. The patient reported that she got home after being released from the hospital, and she felt short of breath when exerting herself, so she went to the ER the following morning to be evaluated. She was found to have an elevated D-dimer, CTA was negative. She was also found to have elevated troponin level, that was followed and trended downward; it was thought that this is due to the fluid overload. Her BNP on admission was greater than 2000. She was diuresed, her intake and output were strictly monitored, and her electrolytes were monitored and repleted accordingly. She had an echo done that demonstrated new onset CHF, see above. Cardiology was consulted, and the patient was started on carvedilol, spironolactone, and Entresto. She was also followed by the Cardiac Rehab Team and will follow up with them outpatient. The patient was evaluated on the day of discharge and reported that she was able to walk throughout the hospital without becoming short of breath. The new diagnosis was discussed, as well as the new medications, and she was agreeable to the plan of care being discharged on these medications and following up with Cardiology and Cardiac Rehab outpatient. DISPOSITION: Stable. DISCHARGE INSTRUCTIONS: 1. Location: Home. 2. Diet: Heart-healthy, carb-conscious. 3. Activity: As tolerated. 4. Followup: Follow up with Dr. Sahu on 04/28, with Dr. Babin within 1 week, with Oncology as scheduled, and with Cardiac Rehab Outpatient Team as scheduled. Job ID: [id number] MTDD
--- NOTE | 2019-04-13 07:59 | PQF ---
PAPO BARBOSA KATHERINE MD [id number] [facility]-292 [id number] CLINICAL DOCUMENTATION CLARIFICATION FORM: POST DISCHARGE Addendum to original discharge summary date: ____ Late entry note date: __ DATE: 04/13/2019 ATTN:VALERIA BEAVER MD Please exercise your independent, professional judgment in responding to the clarification form. Clinical indicators are provided on the bottom of this form for your review Please check appropriate box(s): HEART FAILURE: A. TYPE: [ ] Systolic / HFrEF [ ] Diastolic / HFpEF [ ] Combined Systolic / Diastolic B. ACUITY [ ] Acute [ ] Acute on Chronic [ ] Chronic [ ] Other diagnosis [ ] Unable to determine In addition, please specify: Present on Admission (POA): [ ] Yes [ ] No [ ] Unable to determine For continuity of documentation, please document condition throughout progress notes and discharge summary. Thank You. CLINICAL INDICATORS - SIGNS / SYMPTOMS / LABS SOB-Documented in family medicine H&P on 04/07 By Fabi Norwood Pulmonary edema likely 2/2 fluid overload-Documented in family medicine H&P on 04/07 By Fabi Norwood [id number] in family medicine H&P on 04/07 By Fabi Norwood EKG-Sinus tach-Documented in family medicine H&P on 04/07 By Fabi Norwood Cardiomypathy-Documented in consultation on 04/09 by Morgan Sahu Small bilateral pleural effusions-Documented in DS on 04/10 by Fabi Norwood Echo:EF 35% to 35%,Repeat Echo:35% to 40%-Documented in DS on 04/10 by Fabi Norwood New onset congestive heart failure-Documented in DS on 04/10 by Fabi Norwood RISKS: HTN-Documented in family medicine H&P on 04/07 By Fabi Norwood HLD-Documented in family medicine H&P on 04/07 By Fabi Norwood Pulmonary edema--Documented in family medicine H&P on 04/07 By Fabi Norwood TREATMENTS: IV lasix-Documented in family medicine H&P on 04/07 By Fabi Norwood Consultation on 04/09 by Morgan Sahu 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 All Rights Reserved [email or web address] [not provided] MTDD
== END 2019-04-10 17:43 | disposition home or self-care (01) | DRG 292 ==
LOC: ERS 11:35 → 2NO 15:51
PROVIDERS: ADMIT Family Medicine; ATTEND Family Medicine
DX: I11.0 Hypertensive heart disease with heart failure (principal); C91.50 Adult T-cell lymphoma/leukemia (HTLV-1-associated) not having achieved remission; C85.10 Unspecified B-cell lymphoma, unspecified site; J98.11 Atelectasis; I50.9 Heart failure, unspecified; E78.5 Hyperlipidemia, unspecified; F32.9 Major depressive disorder, single episode, unspecified; E86.0 Dehydration; E11.65 Type 2 diabetes mellitus with hyperglycemia; E87.6 Hypokalemia; T38.0X5A Adverse effect of glucocorticoids and synthetic analogues, initial encounter; I42.9 Cardiomyopathy, unspecified; I42.7 Cardiomyopathy due to drug and external agent; T45.1X5A Adverse effect of antineoplastic and immunosuppressive drugs, initial encounter; E83.39 Other disorders of phosphorus metabolism; E83.42 Hypomagnesemia; I08.3 Combined rheumatic disorders of mitral, aortic and tricuspid valves
CPT/HCPCS: 36415; 36416; 71045; 71275; 80048; 80053; 82553; 83036; 83690; 83735; 83880; 84100; 84484; 85025; 85379; 87324; 87449; 93005; 93306; 96360; J1642; J1650; J1815; J1940; J3475; J7050; Q9967